=== PATIENT | female | born 1935 | race Caucasian/White ===

== ENCOUNTER → 2018-03-07 14:16 | Outpatient (CLI) | payer MEDICARE, OTHER, SELFPAY ==
[2018-03-07 16:33] LABS: Absolute Lymphocyte Count 2.27 X10^3/ul (0.83-4.51); Absolute Neutrophil Count 3.6 X10^3/uL (2.0-7.7); Basophil# 0.03 X10^3/uL; Basophil% 0.4 % (0-1); Eosinophil# 0.22 X10^3/uL; Eosinophils% 3.1 % (0-5); Hematocrit 38.4 % (37-47); Hemoglobin 13.4 g/dl (12.0-15.0); Lymphocyte # 2.27 X10^3/ul (4.0); Lymphocyte % 32.4 % (19-41); Mean Corp Hgb Conc 34.9 g/gl (32-36); Mean Corpuscular Hgb 31.2 pg (27.0-32.0); Mean Corpuscular Volume 89.3 fL (81-99); Mean Platelet Vol. 11.4 fl (6.2-12.0); Monocyte# 0.84 X10^3/uL; Neutrophil # 3.64 X10^3/uL (2.7-7.7); Platelet Count 196 K/mm3 (150-450); RBC Distribution Width CV 12.9 % (11.6-14.6); RBC Distribution Width SD 41.3 fl (35.1-43.9)
[2018-03-07 16:57] LABS: POSITIVE COUNT NO; POSITIVE DIFFERENTIAL NO; POSITIVE MORPHOLOGY NO
[2018-03-07 17:10] LABS: ALB/GLOB Ratio 1.1 RATIO (0.9-2.4); AST(SGOT) 13 U/L (15-37); Alanine Aminotransfer ALT/SGPT 21 U/L (13-56); Albumin, Serum 3.9 g/dL (3.2-5.0); Alkaline Phosphatase 59 U/L (45-117); Anion Gap 7 (5-15); BUN 12 mg/dL (7-18); BUN/Creat Ratio 11.2 RATIO (10-20); Calcium,Total 9.7 mg/dL (8.5-10.1); Chloride 106 mmol/L (98-107); Creatinine, Serum 1.07 mg/dL (0.55-1.02); EST Glomerular Filtration Rate 52 mL/min (>60); Est Glom Filt Rate - Afr Amer 63 mL/min (>60); Globulin 3.4 g/dL (2.2-4.2); Glucose 129 mg/dL (74-106); Potassium 4.2 mmol/L (3.5-5.1); Protein, Total 7.3 g/dL (6.4-8.2); Sodium Level 141 mmol/L (136-145); Thyroid Stim Hormone (TSH) 2.14 uIU/mL (0.358-3.74)
[2018-03-08 08:22] LABS: Vitamin D,25 Hydroxy 35.2 ng/mL (29.95-100.01)
== END ==
PROVIDERS: Family Provider Family Medicine Geriatric Medicine; PCP Family Medicine Geriatric Medicine; Visit Provider Family Medicine Geriatric Medicine
DX: E11.9 Type 2 diabetes mellitus without complications (principal); E55.9 Vitamin D deficiency, unspecified; I10 Essential (primary) hypertension
CPT/HCPCS: 36415; 80053; 82306; 84443; 85025

== ENCOUNTER → 2018-09-07 08:30 | Outpatient (CLI) | payer MEDICARE, OTHER, SELFPAY ==
--- NOTE | 2018-09-07 08:39 | MRI_ITS ---
STUDY: MRI CERVICAL SPINE WITHOUT CONTRAST REASON FOR EXAM: Female, 82 years old. Neck pain TECHNIQUE: Standardized fat and water weighted pulse sequences were obtained in the sagittal and axial planes. COMPARISON: 11/26/2015 FINDINGS: Normal foramen magnum and brainstem-cervical cord junction. Normal craniovertebral junction. Normal anterior atlantoaxial articulation. Normal odontoid process. There is reversal of the normal cervical lordosis. Normal vertebral bodies and posterior osseous elements. C2-3: Central disc protrusion with mild central canal stenosis. C3-4: Disc osteophyte complex and left facet hypertrophy with mild central canal and left foraminal stenoses. C4-5: Disc osteophyte complex and bilateral facet hypertrophy with moderate central canal and severe right foraminal stenoses. C5-6: The disc space is fused. C6-7: Disc osteophyte complex with mild central canal and moderate bilateral foraminal stenoses. C7-T1: Normal endplates. Normal disc height, signal and morphology. Normal central canal and intervertebral neural foramina. Normal cervical cord. Normal visualized soft tissue structures. MRI/Spine Cervical (Routine) IMPRESSION: Interval progression of multilevel degenerative disc disease. Moderate central canal and severe right foraminal stenoses at the C4-5 level. Moderate bilateral foraminal stenoses at the C6-7 level. Electronically Signed: Nishant Snider MD at 10:48 EDT Tel , Service support ,
== END ==
PROVIDERS: Family Provider Family Medicine Geriatric Medicine; PCP Family Medicine Geriatric Medicine; Referring Provider Family Medicine Geriatric Medicine; Visit Provider Family Medicine Geriatric Medicine
DX: M48.02 Spinal stenosis, cervical region (principal)
CPT/HCPCS: 72141

== ENCOUNTER → 2019-03-10 | Outpatient (CLI) | payer MEDICARE, OTHER, SELFPAY ==
[2019-03-10 16:09] LABS: Absolute Lymphocyte Count 2.27 X10^3/ul (0.83-4.51); Absolute Neutrophil Count 4.4 X10^3/uL (2.0-7.7); Basophil# 0.03 X10^3/uL; Basophil% 0.4 % (0-1); Eosinophil# 0.16 X10^3/uL; Eosinophils% 2.1 % (0-5); Hematocrit 37.2 % (37-47); Hemoglobin 12.3 g/dl (12.0-15.0); Lymphocyte # 2.27 X10^3/ul (4.0); Lymphocyte % 29.9 % (19-41); Mean Corp Hgb Conc 33.1 g/gl (32-36); Mean Corpuscular Volume 93.7 fL (81-99); Mean Platelet Vol. 11.3 fl (6.2-12.0); Monocyte% 9.2 % (0-10); Neutrophil # 4.41 X10^3/uL (2.7-7.7); Neutrophil % 58.3 % (47-70); Platelet Count 213 K/mm3 (150-450); RBC Distribution Width CV 13.8 % (11.6-14.6); RBC Distribution Width SD 47.6 fl (35.1-43.9); Red Blood Count 3.97 M/mm3 (4.2-5.4); White Blood Count 7.6 K/mm3 (4.4-11.0)
[2019-03-10 16:27] LABS: Vitamin D,25 Hydroxy 14.9 ng/mL (29.95-100.01)
[2019-03-10 16:35] LABS: POSITIVE COUNT NO; POSITIVE DIFFERENTIAL NO; POSITIVE MORPHOLOGY NO
[2019-03-10 16:36] LABS: AST(SGOT) 12 U/L (15-37); Alanine Aminotransfer ALT/SGPT 18 U/L (13-56); Albumin, Serum 3.6 g/dL (3.2-5.0); Alkaline Phosphatase 63 U/L (45-117); Anion Gap 10 (5-15); BUN 14 mg/dL (7-18); BUN/Creat Ratio 14.3 RATIO (10-20); Calcium,Total 9.4 mg/dL (8.5-10.1); Chloride 105 mmol/L (98-107); Creatinine, Serum 0.98 mg/dL (0.55-1.02); EST Glomerular Filtration Rate 58 mL/min (>60); Est Glom Filt Rate - Afr Amer 70 mL/min (>60); Globulin 3.5 g/dL (2.2-4.2); Glucose 177 mg/dL (74-106); Potassium 4.1 mmol/L (3.5-5.1); Protein, Total 7.1 g/dL (6.4-8.2); Sodium Level 139 mmol/L (136-145); Thyroid Stim Hormone (TSH) 1.84 uIU/mL (0.358-3.74)
== END | disposition home or self-care (01) ==
LOC: POLAB3 14:24
PROVIDERS: Family Provider Family Medicine Geriatric Medicine; PCP Family Medicine Geriatric Medicine; Visit Provider Family Medicine Geriatric Medicine
DX: E11.9 Type 2 diabetes mellitus without complications (principal); E55.9 Vitamin D deficiency, unspecified; I10 Essential (primary) hypertension
CPT/HCPCS: 36415; 80053; 82306; 84443; 85025

== ENCOUNTER → 2019-05-19 | Outpatient (CLI) | payer MEDICARE, OTHER, SELFPAY ==
[2019-05-19 12:23] LABS: Absolute Lymphocyte Count 0.95 X10^3/ul (0.83-4.51); Absolute Neutrophil Count 2.8 X10^3/uL (2.0-7.7); Basophil# 0.02 X10^3/uL; Basophil% 0.4 % (0-1); Eosinophil# 0.17 X10^3/uL; Eosinophils% 3.6 % (0-5); Hemoglobin 12.7 g/dl (12.0-15.0); Lymphocyte # 0.95 X10^3/ul (4.0); Lymphocyte % 20.1 % (19-41); Mean Corp Hgb Conc 33.4 g/gl (32-36); Mean Corpuscular Hgb 30.5 pg (27.0-32.0); Mean Corpuscular Volume 91.1 fL (81-99); Mean Platelet Vol. 11.3 fl (6.2-12.0); Monocyte% 16.9 % (0-10); Neutrophil # 2.78 X10^3/uL (2.7-7.7); Platelet Count 188 K/mm3 (150-450); RBC Distribution Width CV 13.5 % (11.6-14.6); RBC Distribution Width SD 44.1 fl (35.1-43.9); Red Blood Count 4.17 M/mm3 (4.2-5.4); White Blood Count 4.7 K/mm3 (4.4-11.0)
[2019-05-19 12:33] LABS: POSITIVE COUNT NO; POSITIVE DIFFERENTIAL NO; POSITIVE MORPHOLOGY NO
--- NOTE | 2019-05-19 12:40 | RAD_ITS ---
STUDY: X-RAY CHEST REASON FOR EXAM: Female, 83 years old. Shortness of breath. TECHNIQUE: PA and lateral views of the chest. COMPARISON: None. FINDINGS: Lungs are mildly hyperexpanded. There is chronic interstitial coarsening without acute infiltrate or mass. There is no demonstrated pleural abnormality. Normal size heart. Normal mediastinum and linda. Normal visualized pulmonary arteries. There is atherosclerotic calcification of the aortic arch with tortuosity. Normal visualized thoracic spine. Normal visualized ribs, clavicles, and shoulders. There is no demonstrated abnormality of the visualized soft tissue structures of the upper abdomen. RAD/Chest PA and Lateral IMPRESSION: No acute cardiopulmonary disease. Electronically Signed: Jayant Meade DO at 17:02 EDT Tel [phone], Service support ,
[2019-05-19 12:50] LABS: D-Dimer Quantitative (DVT/PE) 1.17 FEU/ug/m (0.27-0.49)
[2019-05-19 12:51] LABS: ALB/GLOB Ratio 0.8 RATIO (0.9-2.4); AST(SGOT) 18 U/L (15-37); Alanine Aminotransfer ALT/SGPT 20 U/L (13-56); Albumin, Serum 3.4 g/dL (3.2-5.0); Alkaline Phosphatase 87 U/L (45-117); Anion Gap 10 (5-15); BUN 10 mg/dL (7-18); BUN/Creat Ratio 8.8 RATIO (10-20); CPK Total, Creatine Kinase 59 U/L (26-192); Calcium,Total 9.5 mg/dL (8.5-10.1); Chloride 103 mmol/L (98-107); Creatinine, Serum 1.14 mg/dL (0.55-1.02); EST Glomerular Filtration Rate 49 mL/min (>60); Est Glom Filt Rate - Afr Amer 59 mL/min (>60); Globulin 4.2 g/dL (2.2-4.2); Glucose 183 mg/dL (74-106); Potassium 3.8 mmol/L (3.5-5.1); Protein, Total 7.6 g/dL (6.4-8.2); Sodium Level 137 mmol/L (136-145)
[2019-05-19 13:02] LABS: BNP,B-Type NATRIURETIC PEPTIDE 8.6 pg/mL (0-100)
[2019-05-21 17:28] LABS: Myoglobin, Serum 42 ng/mL (25-58)
== END | disposition home or self-care (01) ==
LOC: POLAB3 11:00 → RAD 12:36
PROVIDERS: Family Provider Family Medicine Geriatric Medicine; PCP Family Medicine Geriatric Medicine; Referring Provider Family Medicine Geriatric Medicine; Visit Provider Family Medicine Geriatric Medicine
DX: N39.0 Urinary tract infection, site not specified (principal); R06.02 Shortness of breath; R06.89 Other abnormalities of breathing; R53.83 Other fatigue
CPT/HCPCS: 36415; 71046; 80053; 82550; 83874; 83880; 84443; 84484; 85025; 85379; 87086; 87088

== ENCOUNTER → 2019-05-20 | Outpatient (CLI) | payer MEDICARE, OTHER, SELFPAY ==
--- NOTE | 2019-05-20 12:23 | CT_ITS ---
STUDY: CTA CHEST REASON FOR EXAM: Female, 83 years old. Shortness of breath. RADIATION DOSAGE (If Supplied By Facility): CTDIvol = ( 5.21 ) mGy, DLP = ( 181.46 ) mGycm TECHNIQUE: The examination was performed with the intravenous administration of 75 IV Isovue 370. Post-processing of the angiographic images was performed, with multiplanar reformation and 3D reconstruction. Individualized dose optimization techniques were used for this CT. COMPARISON: Comparison is made with prior examination dated November 14, 2016. FINDINGS: Normal enhancement of the main pulmonary artery and right and left pulmonary arteries. Normal enhancement of the bilateral peripheral pulmonary arteries. There is no demonstrated pulmonary embolism. There is atherosclerotic calcification of the aortic arch with tortuosity. There is no demonstrated aortic dissection. There are calcifications of the coronary arteries. Normal mediastinum. Normal hilar regions. Normal visualized trachea and bronchi. The lungs are well expanded. Stable focal area of scarring in the posterior right apex as well as in the left apex. Focal bronchiectasis is seen in the right apex. Stable scarring in the posterior medial aspect of the left lower lobe. Normal pleura. Normal chest wall structures. There are degenerative changes of thoracic spine. Normal visualized upper abdomen. CT/CTA Chest W/WO Contrast IMPRESSION: Stable examination with scarring in the apices and left lower lobe. No acute abnormality is seen. Electronically Signed: Alvin Frost, at 14:25 EDT , Service support ,
[2019-05-20 17:50] LABS: CPK Total, Creatine Kinase 83 U/L (26-192)
[2019-05-22 08:04] LABS: Myoglobin, Serum 42 ng/mL (25-58)
== END | disposition home or self-care (01) ==
LOC: CT 11:56
PROVIDERS: Family Provider Family Medicine Geriatric Medicine; PCP Family Medicine Geriatric Medicine; Referring Provider Family Medicine Geriatric Medicine; Visit Provider Family Medicine Geriatric Medicine
DX: R06.02 Shortness of breath (principal); R07.9 Chest pain, unspecified
CPT/HCPCS: 36415; 71275; 82550; 83874; 84484; Q9967

== ENCOUNTER → 2019-05-30 | Outpatient (CLI) | payer MEDICARE, OTHER, SELFPAY ==
--- NOTE | 2019-05-30 15:27 | STRESSREP ---
Stress Test Report Exercise myocardial perfusion stress test. 83-year-old lady with a history of chest pain. Stress protocol: Resting EKG demonstrates normal sinus rhythm with a rate of 78 bpm normal intervals are noted resting blood pressures 130/70 mmHg. Patient exercised according to regular Lenny protocol for total duration of 4 minutes and 30 seconds the maximum heart rate attained was 148 bpm which was 106% of maximum predicted heart rate and maximum workload was 6.4 metabolic equivalents. At rest there were no ST or T wave changes noted suggest ischemia peak exercise upsloping ST changes only were noted with no meet the criteria for ischemia. No clinical angina was noted the test was terminated due to leg fatigue. The resting blood pressure 130/70 with a peak blood pressure 170/80 mmHg. Myocardial perfusion protocol. 10.7 mCi of technetium 99m sestamibi was injected at rest. The patient exercised according to Lenny protocol for 4 minutes and 30 seconds at peak exercise 31.1 mCi of technetium 99m sestamibi was injected stress images were obtained stress and rest images are reconstructed in comparing the short axis vertical and horizontal long axis. Gated images were also obtained Perfusion SPECT analysis: Review of the images demonstrate normal uptake of tracer noted in all areas of the myocardium the resting images similar demonstrate normal uptake of tracer noted in all areas of the myocardium. No areas of reversibility are noted suggest ischemia. No previous infarct is noted. Gated SPECT analysis: The gated ejection fraction is noted to be in excess of 80%. Conclusion: Normal exercise myocardial perfusion stress test at a moderate workload. Excellent functional capacity. No arrhythmias noted. Preserved ejection fraction.
== END | disposition home or self-care (01) ==
LOC: CVS 06:35
PROVIDERS: Family Provider Family Medicine Geriatric Medicine; PCP Family Medicine Geriatric Medicine; Referring Provider Family Medicine Geriatric Medicine; Visit Provider Family Medicine Geriatric Medicine
DX: R07.9 Chest pain, unspecified (principal)
CPT/HCPCS: 78452; 93017; A9500; A4216

== ENCOUNTER → 2019-09-09 | Outpatient (CLI) | payer MEDICARE, OTHER, SELFPAY ==
[2019-09-09 17:46] LABS: Absolute Neutrophil Count 2.3 X10^3/uL (2.0-7.7); Basophil# 0.03 X10^3/uL; Basophil% 0.6 % (0-1); Eosinophil# 0.16 X10^3/uL; Hematocrit 37.5 % (37-47); Hemoglobin 12.4 g/dL (12.0-15.0); Mean Corp Hgb Conc 33.1 g/dL (32-36); Mean Corpuscular Hgb 30.8 pg (27.0-32.0); Mean Corpuscular Volume 93.1 fL (81-99); Mean Platelet Vol. 11.7 fl (6.2-12.0); Monocyte# 0.63 X10^3/uL; Monocyte% 11.8 % (0-10); NRBC Flagged by Analyzer 0 % (0-5); Neutrophil # 2.33 X10^3/uL (2.7-7.7); Neutrophil % 43.4 % (47-70); Platelet Count 194 K/mm3 (150-450); RBC Distribution Width CV 13.2 % (11.6-14.6); RBC Distribution Width SD 45.4 fl (35.1-43.9); Red Blood Count 4.03 M/mm3 (4.2-5.4); White Blood Count 5.4 K/mm3 (4.4-11.0)
[2019-09-09 18:07] LABS: Vitamin D,25 Hydroxy 29.3 ng/mL (29.95-100.01)
[2019-09-09 18:24] LABS: ALB/GLOB Ratio 1.1 RATIO (0.9-2.4); AST(SGOT) 12 U/L (15-37); Alanine Aminotransfer ALT/SGPT 15 U/L (13-56); Albumin, Serum 3.8 g/dL (3.2-5.0); Alkaline Phosphatase 68 U/L (45-117); Anion Gap 7 (5-15); BUN 12 mg/dL (7-18); BUN/Creat Ratio 12.6 RATIO (10-20); Calcium,Total 9.7 mg/dL (8.5-10.1); Chloride 106 mmol/L (98-107); Creatinine, Serum 0.96 mg/dL (0.55-1.02); EST Glomerular Filtration Rate 60 mL/min (>60); Est Glom Filt Rate - Afr Amer 72 mL/min (>60); Globulin 3.5 g/dL (2.2-4.2); Glucose 138 mg/dL (74-106); Potassium 4.2 mmol/L (3.5-5.1); Protein, Total 7.3 g/dL (6.4-8.2); Sodium Level 139 mmol/L (136-145); Thyroid Stim Hormone (TSH) 2.56 uIU/mL (0.358-3.74)
== END | disposition home or self-care (01) ==
LOC: POLAB3 14:33
PROVIDERS: Family Provider Family Medicine Geriatric Medicine; PCP Family Medicine Geriatric Medicine; Visit Provider Family Medicine Geriatric Medicine
DX: E11.9 Type 2 diabetes mellitus without complications (principal); E55.9 Vitamin D deficiency, unspecified; I10 Essential (primary) hypertension
CPT/HCPCS: 36415; 80053; 82306; 84443; 85025

== ENCOUNTER → 2020-03-11 14:31 | Outpatient (CLI) | payer MEDICARE, OTHER, SELFPAY ==
[2020-03-11 15:37] LABS: Absolute Lymphocyte Count 2.01 X10^3/uL (0.83-4.51); Basophil# 0.03 X10^3/uL; Basophil% 0.5 % (0-1); Eosinophil# 0.16 X10^3/uL; Eosinophils% 2.7 % (0-5); Hematocrit 38.3 % (37-47); Hemoglobin 12.9 g/dL (12.0-15.0); Lymphocyte # 2.01 X10^3/ul (4.0); Lymphocyte % 34.4 % (19-41); Mean Corp Hgb Conc 33.7 g/dL (32-36); Mean Corpuscular Hgb 30.7 pg (27.0-32.0); Mean Corpuscular Volume 91.2 fL (81-99); Mean Platelet Vol. 11.2 fl (6.2-12.0); Monocyte# 0.64 X10^3/uL; Monocyte% 10.9 % (0-10); NRBC Flagged by Analyzer 0 % (0-5); Neutrophil # 2.99 X10^3/uL (2.7-7.7); Neutrophil % 51.2 % (47-70); Platelet Count 188 K/mm3 (150-450); RBC Distribution Width CV 13.1 % (11.6-14.6); RBC Distribution Width SD 44.4 fl (35.1-43.9); White Blood Count 5.9 K/mm3 (4.4-11.0)
[2020-03-11 16:10] LABS: Vitamin D,25 Hydroxy 27.9 ng/mL
[2020-03-11 16:40] LABS: ALB/GLOB Ratio 1.1 RATIO (0.9-2.4); AST(SGOT) 13 U/L (15-37); Alanine Aminotransfer ALT/SGPT 15 U/L (13-56); Albumin, Serum 3.8 g/dL (3.2-5.0); Alkaline Phosphatase 60 U/L (45-117); Anion Gap 6 (5-15); BUN 13 mg/dL (7-18); BUN/Creat Ratio 13.3 RATIO (10-20); Calcium,Total 9.4 mg/dL (8.5-10.1); Chloride 104 mmol/L (98-107); Creatinine, Serum 0.98 mg/dL (0.55-1.02); EST Glomerular Filtration Rate 58 mL/min (>60); Est Glom Filt Rate - Afr Amer 70 mL/min (>60); Globulin 3.6 g/dL (2.2-4.2); Glucose 109 mg/dL (74-106); Potassium 3.6 mmol/L (3.5-5.1); Protein, Total 7.4 g/dL (6.4-8.2); Sodium Level 139 mmol/L (136-145); Thyroid Stim Hormone (TSH) 1.41 uIU/mL (0.358-3.74)
== END ==
PROVIDERS: PCP Family Medicine Geriatric Medicine; Referring Provider Family Medicine Geriatric Medicine; Visit Provider Family Medicine Geriatric Medicine
DX: E11.9 Type 2 diabetes mellitus without complications (principal); E55.9 Vitamin D deficiency, unspecified; I10 Essential (primary) hypertension
CPT/HCPCS: 36415; 80053; 82306; 84443; 85025

== ENCOUNTER → 2020-06-09 14:38 | Outpatient (CLI) | payer MEDICARE, OTHER, SELFPAY ==
[2020-06-09 16:38] LABS: Absolute Lymphocyte Count 1.77 X10^3/uL (0.83-4.51); Absolute Neutrophil Count 3.1 X10^3/uL (2.0-7.7); Basophil# 0.03 X10^3/uL; Basophil% 0.5 % (0-1); Eosinophil# 0.14 X10^3/uL; Eosinophils% 2.5 % (0-5); Hematocrit 37.5 % (37-47); Hemoglobin 12.6 g/dL (12.0-15.0); Lymphocyte # 1.77 X10^3/ul (4.0); Lymphocyte % 31.4 % (19-41); Mean Corp Hgb Conc 33.6 g/dL (32-36); Mean Corpuscular Hgb 31.6 pg (27.0-32.0); Mean Platelet Vol. 12.2 fl (6.2-12.0); Monocyte# 0.64 X10^3/uL; Monocyte% 11.3 % (0-10); NRBC Flagged by Analyzer 0 % (0-5); Neutrophil # 3.05 X10^3/uL (2.7-7.7); Neutrophil % 54.1 % (47-70); POSITIVE COUNT YES; Platelet Count 149 K/mm3 (150-450); RBC Distribution Width CV 13.2 % (11.6-14.6); RBC Distribution Width SD 44.7 fl (35.1-43.9); Red Blood Count 3.99 M/mm3 (4.2-5.4); White Blood Count 5.6 K/mm3 (4.4-11.0)
[2020-06-09 17:03] LABS: Vitamin D,25 Hydroxy 28.8 ng/mL
[2020-06-09 17:07] LABS: Differential Indicated SCAN CRITERIA MET
[2020-06-09 17:08] LABS: Platelet Estimate ADEQUATE (ADEQ); Red Cell Morphology NORM C+C NORMAL (NORM C&C)
[2020-06-09 17:09] LABS: ALB/GLOB Ratio 1.2 RATIO (0.9-2.4); AST(SGOT) 16 U/L (15-37); Alanine Aminotransfer ALT/SGPT 15 U/L (13-56); Albumin, Serum 3.8 g/dL (3.2-5.0); Alkaline Phosphatase 59 U/L (45-117); Anion Gap 5 (5-15); BUN 12 mg/dL (7-18); BUN/Creat Ratio 12.5 RATIO (10-20); Calcium,Total 9.2 mg/dL (8.5-10.1); Chloride 109 mmol/L (98-107); Creatinine, Serum 0.96 mg/dL (0.55-1.02); EST Glomerular Filtration Rate 59 mL/min (>60); Est Glom Filt Rate - Afr Amer 71 mL/min (>60); Globulin 3.1 g/dL (2.2-4.2); Glucose 114 mg/dL (74-106); Potassium 4.5 mmol/L (3.5-5.1); Protein, Total 6.9 g/dL (6.4-8.2); Sodium Level 140 mmol/L (136-145); Thyroid Stim Hormone (TSH) 1.57 uIU/mL (0.358-3.74)
== END ==
PROVIDERS: PCP Family Medicine Geriatric Medicine; Visit Provider Family Medicine Geriatric Medicine
DX: E11.9 Type 2 diabetes mellitus without complications (principal); E55.9 Vitamin D deficiency, unspecified; I10 Essential (primary) hypertension
CPT/HCPCS: 36415; 80053; 82306; 84443; 85025

== ENCOUNTER 2020-07-17 13:02 | Emergency (ER) | payer MEDICARE, OTHER, SELFPAY ==
[2020-07-17 13:03] VITALS: BP 145/91; PULSE 83; RESP 18; TEMP 36.4; O2SAT 98; BMI 21.1
--- NOTE | 2020-07-17 13:10 | EKG12_ITS ---
Test Reason : NAUSEA Blood Pressure : / mmHG Vent. Rate : 076 BPM Atrial Rate : 076 BPM P-R Int : 156 ms QRS Dur : 080 ms QT Int : 394 ms P-R-T Axes : 036 -27 055 degrees QTc Int : 443 ms Normal sinus rhythm [place] Confirmed by MANISH LAZARO, KVNG ([id number]), photograph editor GELACIO ZHU ([id number]) on 07/21/2020 9:55:33 AM Referred By: THIERNO Confirmed By:KVNG HAMMOND MD
--- NOTE | 2020-07-17 13:21 | RAD_ITS ---
STUDY: X-RAY CHEST REASON FOR EXAM: Female, 84 years old. MALAISE TECHNIQUE: Frontal view of the chest COMPARISON: May 20 2019 FINDINGS: There is minor apical scarring. The lungs are clear and expanded. There is no demonstrated pleural abnormality. Normal size heart. Normal mediastinum and linda. Normal visualized pulmonary arteries. Normal visualized aortic arch and descending thoracic aorta. Normal visualized thoracic spine. Normal visualized ribs, clavicles, and shoulders. There is no demonstrated abnormality of the visualized soft tissue structures of the upper abdomen. RAD/Chest 1 View (Portable) IMPRESSION: Normal x-ray examination of the chest. Electronically Signed: Jayce Velazco, at 14:51 EDT Tel , Service support ,
--- NOTE | 2020-07-17 13:25 | ED.DCSUM_ITS ---
History of Present Illness Chief Complaint: Nausea/Vomiting/Diarrhea Informant: Patient, Significant Other Onset: Days Context: Gradual Onset Timing: Continuous Narrative: Patient is an 84-year-old female with history of diabetes mellitus and hyperlipidemia presenting with generalized malaise and nausea. Patient states she just has been feeling well for the past 3 to 5 days. Family is concerned because she normally does complain of anything so they brought her in to be evaluated. Patient had nausea with some intermittent episodes of vomiting. She has not vomited today. She had decreased appetite. No reported fever or chills. No abdominal pain. Her bowel movements have been normal with no particular constipation or diarrhea. She denies any black or bloody stools. No associated chest pain, diaphoresis or shortness of breath. No swelling of her legs. No urinary symptoms. No other complaints at this time. Prior similar symptoms: No Past Medical History - Allergies and Home Meds Allergies/Adverse Reactions: Allergies pneumococcal vaccine [Pneumococcal Vaccine] Allergy (Verified 07/17/20 13:06) Hives Primary Care Physician: John Noonan Chi, MD [Primary Care Provider] - Past Medical History: - - Hyperlipidemia, diabetes mellitus Surgical History: hysterectomy Lives: Spouse/ Significant Other Smoking Status: Unknown if ever smoked Review of Systems General: Reports: Malaise, - - Decreased appetite. Denies: Chills, Fever, Sweats Eyes: Denies: Visual changes - bilaterally, Diplopia ENT: Denies: Rhinorrhea, Sore throat Cardiovascular: Denies: Chest pain, Palpitations Respiratory: Denies: Dyspnea, Cough, Dyspnea on exertion Gastrointestinal: Reports: Nausea, Vomiting. Denies: Abdominal pain, Diarrhea, Melena, Hematochezia Genitourinary: Denies: Dysuria, Hematuria, Frequency Musculoskeletal: Denies: Back pain, Extremity Pain Skin: Denies: Rash, Wounds Neurological: Denies: Headache, Weakness, Numbness Physical Exam Vital Signs/Narrative: Vital Signs Temp Pulse Resp BP Pulse Ox 07/17/20 13:03 97.5 F L 83 18 145/91 H 98 Inital Vital Signs reviewed: Yes General: Well nourished, Well developed, No Acute Distress Head: Normocephalic, Atraumatic Eyes: Perrl, EOMI ENT: Moist mucous membranes, No rhinorrhea. Negative for: Dry mucous membranes Neck: Supple, Nontender, No JVD Cardiovascular: Regular rate, Regular rhythm, No murmurs, - - 2+ radial and DP pulses Respiratory: No distress, CTA bilaterally, Chest nontender Abdomen: Soft, Nontender, Nondistended, Normal bowel sounds. Negative for: Guarding, Rebound tenderness, Lee's sign Back: Nontender, Normal Inspection Extremities: Nontender, No edema Skin: Normal color, No rash Neurological: Alert, Oriented x3, Cranial nerves II-XII grossly intact, Normal Strength, Normal Sensation Psychological: Normal affect, Normal Mood Diagnostic/Tx/Re-eval Clinical Impression(s) from Imaging Studies Chest X-Ray 07/17/20 13:21 IMPRESSION: Normal x-ray examination of the chest. Electronically Signed: Jayce Willownader, at 14:51 EDT Tel , Service support , Laboratory Data 07/17/20 07/17/20 07/17/20 14:04 14:04 14:04 WBC 5.2 RBC 4.16 L Hgb 12.8 Hct 38.1 MCV 91.6 MCH 30.8 MCHC 33.6 RDW Std Deviation 44.1 H RDW Coeff of Cheryl 13.1 Plt Count 175 MPV 10.9 Immature Gran % (Auto) 0.400 Neut % (Auto) 52.7 Lymph % (Auto) 31.5 [place] % (Auto) 11.5 H Eos % (Auto) 3.5 Baso % (Auto) 0.4 Absolute Neuts (auto) 2.7 Absolute Lymphs (auto) 1.64 Nucleated RBC % 0 Sodium 141 Potassium 3.5 Chloride 107 Carbon Dioxide 26.0 Anion Gap 8 BUN 10 Creatinine 0.96 Estim Creat Clear Calc 35.73 Est GFR (MDRD) Af Amer 72 Est GFR (MDRD) Non-Af 59 L BUN/Creatinine Ratio 10.4 Glucose 118 H Lactic Acid 2.0 Calcium 9.3 Total Bilirubin 0.90 AST 13 L ALT 14 Alkaline Phosphatase 57 Troponin I < 0.015 Total Protein 7.2 Albumin 3.7 Globulin 3.5 Albumin/Globulin Ratio 1.1 Lipase 525 H Urine Color Urine Clarity Urine pH Ur Specific [place] Urine Protein Urine Glucose (UA) Urine Ketones Urine Occult Blood Urine Nitrite Urine Bilirubin Urine Urobilinogen Ur Leukocyte Esterase Urine RBC Urine WBC Ur Squamous Epith Cells Urine Bacteria Urine Mucus 07/17/20 14:42 WBC RBC Hgb Hct MCV MCH MCHC RDW Std Deviation RDW Coeff of Cheryl Plt Count MPV Immature Gran % (Auto) Neut % (Auto) Lymph % (Auto) [place] % (Auto) Eos % (Auto) Baso % (Auto) Absolute Neuts (auto) Absolute Lymphs (auto) Nucleated RBC % Sodium Potassium Chloride Carbon Dioxide Anion Gap BUN Creatinine Estim Creat Clear Calc Est GFR (MDRD) Af Amer Est GFR (MDRD) Non-Af BUN/Creatinine Ratio Glucose Lactic Acid Calcium Total Bilirubin AST ALT Alkaline Phosphatase Troponin I Total Protein Albumin Globulin Albumin/Globulin Ratio Lipase Urine Color Yellow Urine Clarity Sl. Cloudy Urine pH 7.0 Ur Specific [place] 1.010 Urine Protein 30 H Urine Glucose (UA) Normal Urine Ketones Negative Urine Occult Blood 10 H Urine Nitrite Negative Urine Bilirubin Negative Urine Urobilinogen Normal Ur Leukocyte Esterase 100 H Urine RBC 0 SEEN Urine WBC 0-5 SEEN Ur Squamous Epith Cells 0-5 SEEN Urine Bacteria RARE Urine Mucus 0 SEEN - Rhythm Strip Rhythm Strip: Sinus Rhythm Rate: 76 Ectopy: None - EKG Initial EKG Interpretation: Sinus Rhythm, - - Normal sinus rhythm at a rate of 76 Normal axis Normal intervals Normal ST segments Compared to prior EKG on 04/07/2014 patient has mild Deport change but no other acute changes - Medical Decision Making Patient is evaluated for diffuse abdominal discomfort, and nausea. She has active bowel sounds. CBC, CMP, troponin are all unremarkable. Patient is have a mild transient mildly elevated lipase of 525. CT of the abdomen pelvis obtained because of the elevated lipase. It does not show any acute process. Patient is found have gallstones. Her presentation is not consistent with gallstone pancreatitis especially with her normal liver enzymes, bilirubin and alkaline phosphatase. Patient feels better with IV fluids and Zofran. She be discharged home with Zofran. She is counseled on a liquid diet for the next 24 hours and then to slowly advance her diet. She is well-appearing and tolerating p.o. with no signs of dehydration I think she can trial outpatient therapy. Patient and are counseled that there is a chance she could get worse and might need to return the emergency room. They verbalized agreement understanding with this. They are instructed to follow-up with her primary care doctor later this week for recheck. Patient is counseled on signs and symptoms requiring return to the emergency room. Patient verbalizes agreement and understand this plan. Patient discharged home in stable and improved condition. ED Disposition - Plan for ED Patient: Disposition: Home or Assisted Living Diagnosis: Pancreatitis, Nausea Instructions: ED Pancreatitis, ED DIET Full Liquid Prescriptions: Ondansetron [Zofran Odt] 4 mg PO Q8H PRN PRN #10 tab PRN Reason: Nausea Transmission Status: Pending to [facility] Referrals: John Noonan Chi, MD [Primary Care Provider] - 5-7 Days
[2020-07-17] MEDS: Ondansetron 4 MG/2 ML Vial IV (14:07)
[2020-07-17] MEDS: 0.9% Normal Saline 1,000 ML 999 ML IV (14:07)
[2020-07-17 14:12] LABS: Absolute Lymphocyte Count 1.64 X10^3/uL (0.83-4.51); Absolute Neutrophil Count 2.7 X10^3/uL (2.0-7.7); Basophil# 0.02 X10^3/uL; Basophil% 0.4 % (0-1); Eosinophil# 0.18 X10^3/uL; Eosinophils% 3.5 % (0-5); Hematocrit 38.1 % (37-47); Hemoglobin 12.8 g/dL (12.0-15.0); Lymphocyte # 1.64 X10^3/ul (4.0); Lymphocyte % 31.5 % (19-41); Mean Corp Hgb Conc 33.6 g/dL (32-36); Mean Corpuscular Hgb 30.8 pg (27.0-32.0); Mean Corpuscular Volume 91.6 fL (81-99); Mean Platelet Vol. 10.9 fl (6.2-12.0); Monocyte% 11.5 % (0-10); NRBC Flagged by Analyzer 0 % (0-5); Neutrophil # 2.74 X10^3/uL (2.7-7.7); Neutrophil % 52.7 % (47-70); Platelet Count 175 K/mm3 (150-450); RBC Distribution Width CV 13.1 % (11.6-14.6); RBC Distribution Width SD 44.1 fl (35.1-43.9); Red Blood Count 4.16 M/mm3 (4.2-5.4); White Blood Count 5.2 K/mm3 (4.4-11.0)
[2020-07-17 14:30] LABS: ALB/GLOB Ratio 1.1 RATIO (0.9-2.4); AST(SGOT) 13 U/L (15-37); Alanine Aminotransfer ALT/SGPT 14 U/L (13-56); Albumin, Serum 3.7 g/dL (3.2-5.0); Alkaline Phosphatase 57 U/L (45-117); Anion Gap 8 (5-15); BUN 10 mg/dL (7-18); BUN/Creat Ratio 10.4 RATIO (10-20); Calcium,Total 9.3 mg/dL (8.5-10.1); Chloride 107 mmol/L (98-107); Creatinine, Serum 0.96 mg/dL (0.55-1.02); EST Glomerular Filtration Rate 59 mL/min (>60); Est Glom Filt Rate - Afr Amer 72 mL/min (>60); Estimated Creatinine Clearance 35.73 ml/min; Globulin 3.5 g/dL (2.2-4.2); Glucose 118 mg/dL (74-106); Lipase 525 U/L (73-393); Potassium 3.5 mmol/L (3.5-5.1); Protein, Total 7.2 g/dL (6.4-8.2); Sodium Level 141 mmol/L (136-145)
[2020-07-17 14:45] LABS: Mucous, Urine 0 SEEN /hpf (<or=2+); Red Blood Cells-Urine 0 SEEN /hpf (0-5)
[2020-07-17 14:46] LABS: Color, Urine Yellow (Yellow); Glucose, Dipstick Normal (Normal); Ketone-Dipstick Negative (Negative); Leukocyte Esterase-Dipstick 100 /ul (Negative); Nitrite-Dipstick Negative (Negative); Occult Blood-Urine 10 /ul (Negative); Protein-Dipstick 30 mg/dl (Negative); Urine Bilirubin Dipstick Negative (Negative); Urine Clarity Sl. Cloudy (Clear); Urine Urobilinogen Normal (Normal)
[2020-07-17 14:52] LABS: Bacteria RARE /hpf (None Seen); Squamous Epithelial Cells - UA 0-5 SEEN /hpf (5-10); White Blood Cells 0-5 SEEN /hpf (0-5)
--- NOTE | 2020-07-17 14:58 | CT_ITS ---
STUDY: CT ABDOMEN AND PELVIS WITH CONTRAST REASON FOR EXAM: Female, 84 years old. Nausea and vomiting RADIATION DOSAGE (If Supplied By Facility): CTDIvol = ( 9.44 ) mGy, DLP = ( 401.34 ) mGycm TECHNIQUE: Transaxial images were obtained from the dome of the diaphragm to the symphysis pubis without oral contrast. ml of 100mL Isovue-300 contrast was administered. Sagittal and coronal images were reconstructed. Individualized dose optimization techniques were used for this CT. COMPARISON: None. FINDINGS: The visualized lung bases are clear. The visualized portions of the heart and pericardium are within normal limits. There are coronary artery calcifications noted. There are subcentimeter calcified gallstones present. The liver is within normal limits. There are no suspicious hepatic lesions. The spleen is normal in size. The pancreas is within normal limits. The adrenal glands are within normal limits. There are no renal or ureteral stones. There is no hydronephrosis. There are no focal renal lesions. Normal visualized stomach. There is no bowel obstruction or inflammation. The appendix is visualized and appears normal. The aorta is normal in caliber. There are atherosclerotic calcifications noted in the aorta. There is no abdominal or pelvic free air, free fluid, fluid collection or lymphadenopathy. There are no destructive osseous lesions. CT/Abdomen/Pelvis W IV Cont ONLY IMPRESSION: No bowel obstruction or inflammation. Normal appendix. Normal kidneys. No hydronephrosis. Gallstones. Atherosclerosis and coronary artery disease. Electronically Signed: Ian Moody, at 16:10 EDT Tel , Service support ,
[2020-07-17 16:17] VITALS: BP 148/72; PULSE 85; RESP 16; RESP 18; TEMP 36.3; O2SAT 96; O2SAT 97
[2020-07-17 16:46] VITALS: BP 146/76; PULSE 77; RESP 16; O2SAT 96
[2020-07-17 18:08] LABS: Reflex Lactate? Y
== END 2020-07-17 16:47 | disposition home or self-care (01) ==
PROVIDERS: Emergency Provider Emergency Medicine; PCP Family Medicine Geriatric Medicine
DX: K85.90 Acute pancreatitis without necrosis or infection, unspecified (principal); R11.2 Nausea with vomiting, unspecified; Z79.899 Other long term (current) drug therapy
CPT/HCPCS: 71045; 74177; 80053; 81001; 83605; 83690; 84484; 85025; 87086; 87088; 93005; 96374; 99283; J7030; Q9967; A4216; J2405

== ENCOUNTER → 2020-07-20 12:15 | Outpatient (CLI) | payer MEDICARE, OTHER, SELFPAY ==
[2020-07-17 13:03] VITALS: BMI 21.1
[2020-07-20 12:44] LABS: Absolute Lymphocyte Count 2.21 X10^3/uL (0.83-4.51); Absolute Neutrophil Count 3.1 X10^3/uL (2.0-7.7); Basophil# 0.04 X10^3/uL; Basophil% 0.6 % (0-1); Eosinophil# 0.15 X10^3/uL; Eosinophils% 2.4 % (0-5); Hematocrit 40.7 % (37-47); Hemoglobin 13.5 g/dL (12.0-15.0); Lymphocyte # 2.21 X10^3/ul (4.0); Lymphocyte % 35.8 % (19-41); Mean Corp Hgb Conc 33.2 g/dL (32-36); Mean Corpuscular Hgb 30.4 pg (27.0-32.0); Mean Corpuscular Volume 91.7 fL (81-99); Mean Platelet Vol. 11.1 fl (6.2-12.0); Monocyte% 11.3 % (0-10); NRBC Flagged by Analyzer 0 % (0-5); Neutrophil # 3.07 X10^3/uL (2.7-7.7); Neutrophil % 49.7 % (47-70); Platelet Count 206 K/mm3 (150-450); RBC Distribution Width CV 13.1 % (11.6-14.6); RBC Distribution Width SD 44.3 fl (35.1-43.9); Red Blood Count 4.44 M/mm3 (4.2-5.4); White Blood Count 6.2 K/mm3 (4.4-11.0)
[2020-07-20 12:54] LABS: ALB/GLOB Ratio 1.1 RATIO (0.9-2.4); AST(SGOT) 16 U/L (15-37); Alanine Aminotransfer ALT/SGPT 17 U/L (13-56); Alkaline Phosphatase 62 U/L (45-117); Amylase 90 U/L (25-115); Anion Gap 6 (5-15); BUN 9 mg/dL (7-18); BUN/Creat Ratio 8.7 RATIO (10-20); Calcium,Total 9.3 mg/dL (8.5-10.1); Chloride 105 mmol/L (98-107); Creatinine, Serum 1.03 mg/dL (0.55-1.02); EST Glomerular Filtration Rate 54 mL/min (>60); Est Glom Filt Rate - Afr Amer 66 mL/min (>60); Globulin 3.8 g/dL (2.2-4.2); Glucose 106 mg/dL (74-106); Lipase 433 U/L (73-393); Potassium 3.6 mmol/L (3.5-5.1); Protein, Total 7.8 g/dL (6.4-8.2); Sodium Level 138 mmol/L (136-145)
== END ==
PROVIDERS: PCP Family Medicine Geriatric Medicine; Visit Provider Family Medicine Geriatric Medicine
DX: R53.83 Other fatigue (principal)
CPT/HCPCS: 36415; 80053; 82150; 83690; 85025

== ENCOUNTER → 2020-07-21 09:51 | Outpatient (CLI) | payer MEDICARE, OTHER, SELFPAY ==
[2020-07-17 13:03] VITALS: BMI 21.1
[2020-07-21 12:51] LABS: Lipase 529 U/L (73-393)
== END ==
PROVIDERS: PCP Family Medicine Geriatric Medicine; Visit Provider Family Medicine Geriatric Medicine
DX: K85.90 Acute pancreatitis without necrosis or infection, unspecified (principal)
CPT/HCPCS: 36415; 83690

== ENCOUNTER → 2020-09-07 13:37 | Outpatient (CLI) | payer MEDICARE, OTHER, SELFPAY ==
[2020-09-07 16:22] LABS: Absolute Lymphocyte Count 2.31 X10^3/uL (0.83-4.51); Basophil# 0.03 X10^3/uL; Basophil% 0.5 % (0-1); Eosinophil# 0.18 X10^3/uL; Eosinophils% 2.9 % (0-5); Hematocrit 40.2 % (37-47); Hemoglobin 13.3 g/dL (12.0-15.0); Lymphocyte # 2.31 X10^3/ul (4.0); Lymphocyte % 37.4 % (19-41); Mean Corp Hgb Conc 33.1 g/dL (32-36); Mean Corpuscular Volume 93.7 fL (81-99); Mean Platelet Vol. 11.9 fl (6.2-12.0); Monocyte# 0.69 X10^3/uL; Monocyte% 11.2 % (0-10); NRBC Flagged by Analyzer 0 % (0-5); Neutrophil # 2.95 X10^3/uL (2.7-7.7); Neutrophil % 47.8 % (47-70); Platelet Count 211 K/mm3 (150-450); RBC Distribution Width CV 12.8 % (11.6-14.6); RBC Distribution Width SD 43.9 fl (35.1-43.9); Red Blood Count 4.29 M/mm3 (4.2-5.4); White Blood Count 6.2 K/mm3 (4.4-11.0)
[2020-09-07 16:37] LABS: Vitamin D,25 Hydroxy 16.4 ng/mL
[2020-09-07 16:43] LABS: AST(SGOT) 12 U/L (15-37); Alanine Aminotransfer ALT/SGPT 16 U/L (13-56); Albumin, Serum 3.7 g/dL (3.2-5.0); Alkaline Phosphatase 75 U/L (45-117); Anion Gap 6 (5-15); BUN 10 mg/dL (7-18); BUN/Creat Ratio 11.1 RATIO (10-20); Calcium,Total 9.2 mg/dL (8.5-10.1); Chloride 105 mmol/L (98-107); EST Glomerular Filtration Rate 63 mL/min (>60); Est Glom Filt Rate - Afr Amer 77 mL/min (>60); Globulin 3.7 g/dL (2.2-4.2); Glucose 105 mg/dL (74-106); Potassium 4.1 mmol/L (3.5-5.1); Protein, Total 7.4 g/dL (6.4-8.2); Sodium Level 139 mmol/L (136-145); Thyroid Stim Hormone (TSH) 1.62 uIU/mL (0.358-3.74)
== END ==
PROVIDERS: PCP Family Medicine Geriatric Medicine; Visit Provider Family Medicine Geriatric Medicine
DX: E11.9 Type 2 diabetes mellitus without complications (principal); E55.9 Vitamin D deficiency, unspecified; I10 Essential (primary) hypertension
CPT/HCPCS: 36415; 80053; 82306; 84443; 85025

== ENCOUNTER → 2020-09-16 15:48 | Outpatient (CLI) | payer MEDICARE, OTHER, SELFPAY ==
--- NOTE | 2020-09-16 16:10 | RAD_ITS ---
STUDY: X-RAY - ABDOMEN/PELVIS REASON FOR EXAM: Female, 84 years old. constipation x 2 weeks TECHNIQUE: AP supine and upright views of the abdomen and pelvis. COMPARISON: None. FINDINGS: Normal visualized lung bases. No dilated loops of small bowel. There is mild fecal residue of the right colon. There is no demonstrated free abdominal air. The visualized liver, spleen and kidneys are grossly normal in size and morphology. There are vascular calcifications. There are diffuse degenerative changes of the visualized lumbar spine and the pubic symphysis. RAD/Abd Inc Decub and/or Erect IMPRESSION: Right colon fecal retention. Nonobstructive bowel gas pattern. Electronically Signed: Mervin Butler MD ([place]) at 9:35 EST , Service support ,
== END ==
PROVIDERS: PCP Family Medicine Geriatric Medicine; Referring Provider Family Medicine Geriatric Medicine; Visit Provider Family Medicine Geriatric Medicine
DX: N39.0 Urinary tract infection, site not specified (principal); K56.41 Fecal impaction
CPT/HCPCS: 74019; 87086; 87088; 87186

== ENCOUNTER 2020-12-15 16:16 | Emergency (ER) | payer MEDICARE, OTHER, SELFPAY ==
[2020-12-15 16:17] VITALS: BP 199/99; PULSE 84; RESP 16; TEMP 37.2; O2SAT 96; BMI 22.9
--- NOTE | 2020-12-15 16:29 | ED.VIS.GEN ---
History of Present Illness Chief Complaint: Nausea/Vomiting Narrative: This patient is an 85-year-old female who presents with vomiting. This began suddenly just before presentation here to the emergency department within about an hour. She complains of mild epigastric discomfort but states she thinks this is just from the vomiting. No diarrhea. No fever cough chest pain or difficulty breathing. She states she felt fine this morning. No recent illness. She has been in her baseline health. She has a history of hysterectomy no other abdominal surgeries. Past Medical History - Allergies and Home Meds Allergies/Adverse Reactions: Allergies pneumococcal vaccine [Pneumococcal Vaccine] Allergy (Verified 12/15/20 16:20) Hives Primary Care Physician: John Noonan Chi, MD [COURTESY STAFF PHYSICIAN] - Past Medical History: - - Diabetes, hypertension, hyperlipidemia Surgical History: hysterectomy Smoking Status: Never smoker Review of Systems All systems negative except as indicated General: Denies: Fever Eyes: Denies: Visual changes - bilaterally ENT: Denies: Bilateral ear pain Cardiovascular: Denies: Chest pain Respiratory: Denies: Dyspnea Gastrointestinal: Reports: Abdominal pain, Nausea, Vomiting. Denies: Diarrhea Musculoskeletal: Denies: Myalgias, Arthralgias Skin: Denies: Rash Neurological: Denies: Headache Hematologic: Denies: Easy bruising Allergy: Denies: Uticaria Physical Exam Vital Signs/Narrative: Vital Signs Temp Pulse Resp BP Pulse Ox 12/15/20 16:17 98.9 F 84 16 199/99 H 96 Inital Vital Signs reviewed: Yes General: Well nourished Head: Normocephalic Eyes: EOMI ENT: Moist mucous membranes Neck: Supple Cardiovascular: Regular rate, Regular rhythm Respiratory: No distress, CTA bilaterally Abdomen: Soft, Nontender, Nondistended. Negative for: Guarding, Rebound tenderness Skin: Normal color Neurological: Alert Psychological: Normal affect Diagnostic/Tx/Re-eval Laboratory Results 12/15/20 12/15/20 12/15/20 16:50 16:50 17:15 WBC 5.2 RBC 4.53 Hgb 13.7 Hct 39.4 MCV 87.0 MCH 30.2 MCHC 34.8 RDW Std Deviation 39.3 RDW Coeff of Cheryl 12.5 Plt Count 216 MPV 11.1 Immature Gran % (Auto) 1.000 H Neut % (Auto) 60.3 Lymph % (Auto) 27.2 [place] % (Auto) 8.2 Eos % (Auto) 2.7 Baso % (Auto) 0.6 Absolute Neuts (auto) 3.2 Absolute Lymphs (auto) 1.42 Nucleated RBC % 0 Sodium 141 Potassium 2.9 L Chloride 107 Carbon Dioxide 27.0 Anion Gap 7 BUN 6 L Creatinine 0.80 Estim Creat Clear Calc 42.14 Est GFR (MDRD) Af Amer 88 Est GFR (MDRD) Non-Af 73 BUN/Creatinine Ratio 7.5 L Glucose 158 H Calcium 9.1 Total Bilirubin 0.90 AST 11 L ALT 17 Alkaline Phosphatase 112 Total Protein 7.2 Albumin 3.8 Globulin 3.4 Albumin/Globulin Ratio 1.1 Lipase 146 Urine Color Yellow Urine Clarity Cloudy Urine pH 8.0 Ur Specific [place] 1.015 Urine Protein 30 H Urine Glucose (UA) Normal Urine Ketones 5 H Urine Occult Blood 10 H Urine Nitrite Negative Urine Bilirubin Negative Urine Urobilinogen Normal Ur Leukocyte Esterase 25 H Urine RBC 0-5 SEEN Urine WBC 0-5 SEEN Ur Squamous Epith Cells 0-5 SEEN Ur Transition Epith Cell 0 SEEN Amorphous Sediment 2+ Urine Bacteria 0 SEEN Hyaline Casts 0-5 SEEN Fine Granular Casts 0-5 SEEN Urine Mucus 0 SEEN - Medical Decision Making Labs notable only for potassium of 2.9. This was replaced orally and IV. Repeat abdominal exam is benign, no tenderness, she has no further nausea and no complaints on reevaluation. She will be discharged. She does understand return for new or worsening symptoms. ED Disposition - Plan for ED Patient: Disposition: Home or Assisted Living Diagnosis: Vomiting Instructions: ED Vomiting (Adult) Referrals: John Noonan Chi, MD [COURTESY STAFF PHYSICIAN] -
[2020-12-15] MEDS: Ondansetron 4 MG/2 ML Vial IV (16:53)
[2020-12-15] MEDS: 0.9% Normal Saline 1,000 ML 1000 ML IV (16:55)
[2020-12-15 17:15] LABS: Absolute Lymphocyte Count 1.42 X10^3/uL (0.83-4.51); Absolute Neutrophil Count 3.2 X10^3/uL (2.0-7.7); Basophil# 0.03 X10^3/uL; Basophil% 0.6 % (0-1); Eosinophil# 0.14 X10^3/uL; Eosinophils% 2.7 % (0-5); Hematocrit 39.4 % (37-47); Hemoglobin 13.7 g/dL (12.0-15.0); Lymphocyte # 1.42 X10^3/ul (4.0); Lymphocyte % 27.2 % (19-41); Mean Corp Hgb Conc 34.8 g/dL (32-36); Mean Corpuscular Hgb 30.2 pg (27.0-32.0); Mean Platelet Vol. 11.1 fl (6.2-12.0); Monocyte# 0.43 X10^3/uL; Monocyte% 8.2 % (0-10); NRBC Flagged by Analyzer 0 % (0-5); Neutrophil # 3.16 X10^3/uL (2.7-7.7); Neutrophil % 60.3 % (47-70); Platelet Count 216 K/mm3 (150-450); RBC Distribution Width CV 12.5 % (11.6-14.6); RBC Distribution Width SD 39.3 fl (35.1-43.9); Red Blood Count 4.53 M/mm3 (4.2-5.4); White Blood Count 5.2 K/mm3 (4.4-11.0)
[2020-12-15 17:17] LABS: ALB/GLOB Ratio 1.1 RATIO (0.9-2.4); AST(SGOT) 11 U/L (15-37); Alanine Aminotransfer ALT/SGPT 17 U/L (13-56); Albumin, Serum 3.8 g/dL (3.2-5.0); Alkaline Phosphatase 112 U/L (45-117); Anion Gap 7 (5-15); BUN 6 mg/dL (7-18); BUN/Creat Ratio 7.5 RATIO (10-20); Calcium,Total 9.1 mg/dL (8.5-10.1); Chloride 107 mmol/L (98-107); EST Glomerular Filtration Rate 73 mL/min (>60); Est Glom Filt Rate - Afr Amer 88 mL/min (>60); Estimated Creatinine Clearance 42.14 ml/min; Globulin 3.4 g/dL (2.2-4.2); Glucose 158 mg/dL (74-106); Lipase 146 U/L (73-393); Potassium 2.9 mmol/L (3.5-5.1); Protein, Total 7.2 g/dL (6.4-8.2); Sodium Level 141 mmol/L (136-145)
[2020-12-15 17:23] LABS: Bacteria 0 SEEN /hpf (None Seen); Mucous, Urine 0 SEEN /hpf (<or=2+)
[2020-12-15 17:29] LABS: Color, Urine Yellow (Yellow); Glucose, Dipstick Normal (Normal); Ketone-Dipstick 5 mg/dl (Negative); Leukocyte Esterase-Dipstick 25 /ul (Negative); Nitrite-Dipstick Negative (Negative); Occult Blood-Urine 10 /ul (Negative); Protein-Dipstick 30 mg/dl (Negative); Specific Gravity, Urine 1.015 (1.002-1.030); Urine Bilirubin Dipstick Negative (Negative); Urine Clarity Cloudy (Clear); Urine Urobilinogen Normal (Normal)
[2020-12-15 17:39] LABS: Amorphous Sediment 2+; Hyaline Cast 0-5 SEEN /lpf (0-5); Squamous Epithelial Cells - UA 0-5 SEEN /hpf (5-10); Transitional Epithelial - Ur 0 SEEN /hpf (0-5)
[2020-12-15 17:40] LABS: Fine Granular Cast- Urine 0-5 SEEN /lpf (0-5)
[2020-12-15 17:41] LABS: White Blood Cells 0-5 SEEN /hpf (0-5)
[2020-12-15 17:42] LABS: Red Blood Cells-Urine 0-5 SEEN /hpf (0-5)
[2020-12-15 18:30] VITALS: BP 167/81; PULSE 82; O2SAT 97
[2020-12-15] MEDS: Potassium Chloride 10mEq/100mL 10 MEQ/100 ML IV.SOLN. 100 MEQ IV BOLUS ×4 (18:44→21:55)
--- NOTE | 2020-12-15 19:43 | ED.RN ---
Updated daughter with POC. She said that her brother, Dashawn Chapman would come and pick pt up when discharged.
--- NOTE | 2020-12-15 20:34 | ED.RN ---
RN FROM [facility] WILL COME TO TAKE THIS PT HOME AFTER 0282
[2020-12-15 20:41] VITALS: BP 153/104; PULSE 92; RESP 19; O2SAT 96
[2020-12-15 22:02] VITALS: BP 155/82; PULSE 99; RESP 22; O2SAT 98
--- NOTE | 2020-12-15 22:26 | ED.RN ---
Daughter here to crab picker, she is up to date on discharge instructions. Spoke with nurse at [facility] and updated her as well.
== END 2020-12-15 22:27 | disposition home or self-care (01) ==
PROVIDERS: Emergency Provider Emergency Medicine; PCP Family Medicine
DX: R11.2 Nausea with vomiting, unspecified (principal); E11.9 Type 2 diabetes mellitus without complications; Z79.84 Long term (current) use of oral hypoglycemic drugs; Z90.710 Acquired absence of both cervix and uterus
CPT/HCPCS: 80053; 81001; 83690; 85025; 96365; 96366; 96375; 99285; J7030; A4216; J2405

== ENCOUNTER → 2020-12-20 05:00 | Outpatient (REF) | payer MEDICARE, OTHER, SELFPAY ==
[2020-12-15 16:17] VITALS: BMI 22.9
[2020-12-20 08:10] LABS: Hematocrit 38.2 % (37-47); Hemoglobin 13.2 g/dL (12.0-15.0); Mean Corp Hgb Conc 34.6 g/dL (32-36); Mean Corpuscular Hgb 30.8 pg (27.0-32.0); Mean Corpuscular Volume 89.3 fL (81-99); Mean Platelet Vol. 11.2 fl (6.2-12.0); Platelet Count 221 K/mm3 (150-450); RBC Distribution Width CV 12.6 % (11.6-14.6); RBC Distribution Width SD 41.5 fl (35.1-43.9); Red Blood Count 4.28 M/mm3 (4.2-5.4); White Blood Count 5.1 K/mm3 (4.4-11.0)
[2020-12-20 08:30] LABS: ALB/GLOB Ratio 1.1 RATIO (0.9-2.4); AST(SGOT) 14 U/L (15-37); Alanine Aminotransfer ALT/SGPT 15 U/L (13-56); Albumin, Serum 3.4 g/dL (3.2-5.0); Alkaline Phosphatase 103 U/L (45-117); Anion Gap 4 (5-15); BUN 7 mg/dL (7-18); BUN/Creat Ratio 8.9 RATIO (10-20); Chloride 109 mmol/L (98-107); Creatinine, Serum 0.78 mg/dL (0.55-1.02); EST Glomerular Filtration Rate 75 mL/min (>60); Est Glom Filt Rate - Afr Amer 90 mL/min (>60); Globulin 3.2 g/dL (2.2-4.2); Glucose 131 mg/dL (74-106); Potassium 4.4 mmol/L (3.5-5.1); Protein, Total 6.6 g/dL (6.4-8.2); Sodium Level 139 mmol/L (136-145)
[2020-12-20 08:37] LABS: Hemoglobin A1c 6.6 % (3.8-5.6)
== END ==
PROVIDERS: PCP Family Medicine; Referring Provider Family Medicine; Visit Provider Family Medicine
DX: E11.9 Type 2 diabetes mellitus without complications (principal); I10 Essential (primary) hypertension; E78.5 Hyperlipidemia, unspecified
CPT/HCPCS: 36415; 80053; 83036; 85027

== ENCOUNTER → 2021-01-12 05:00 | Outpatient (REF) | payer MEDICARE, OTHER, SELFPAY ==
[2020-12-15 16:17] VITALS: BMI 22.9
[2021-01-12 08:14] LABS: Anion Gap 4 (5-15); BUN 10 mg/dL (7-18); BUN/Creat Ratio 10.8 RATIO (10-20); Calcium,Total 8.8 mg/dL (8.5-10.1); Chloride 108 mmol/L (98-107); Creatinine, Serum 0.93 mg/dL (0.55-1.02); EST Glomerular Filtration Rate 61 mL/min (>60); Est Glom Filt Rate - Afr Amer 74 mL/min (>60); Glucose 113 mg/dL (74-106); Potassium 4.2 mmol/L (3.5-5.1); Sodium Level 141 mmol/L (136-145)
== END ==
PROVIDERS: PCP Family Medicine; Referring Provider Family Medicine; Visit Provider Family Medicine
DX: I10 Essential (primary) hypertension (principal); Z79.899 Other long term (current) drug therapy
CPT/HCPCS: 36415; 80048

== ENCOUNTER 2025-01-30 16:19 | Emergency (ER) | payer MEDICARE, MEDICAID, SELFPAY ==
[2025-01-30 16:20] VITALS: BP 149/79; PULSE 111; RESP 16; TEMP 39.4; O2SAT 92; BMI 19.6
--- NOTE | 2025-01-30 16:50 | EDS_ITS ---
HPI History of Present Illness Chief Complaint: Head Injury Informant: patient Onset/Context/Timing Onset: Today Context: Gradual Onset Timing: Continuous Quality: Off-balance Location: Generalized Worsened by: Nothing Relieved by: Nothing Narrative Narrative: Patient presents with dizziness and fall that occurred today. Patient states she felt dizzy and then fell. Patient states her dizziness feels like she is off balance. Patient denies any head injury or loss of consciousness. Patient denies any paresthesias or weakness. Patient denies any headaches. Patient denies any nausea or vomiting. Patient denies any urinary complaints. Patient denies any fevers or chills. Patient is DNR comfort care only. PFSH [facility] Home Medications ?Medication ?Instructions ?Recorded ?Last Taken ?Type metformin 500 mg tablet 1,000 mg PO BID 07/17/20 Unk nown History cephalexin 500 mg capsule 500 mg PO Q6 #12 CAPSULES Unknown Rx melatonin 3 mg capsule 3 mg PO QHS PRN sleep Unknown History oseltamivir 75 mg capsule (Tamiflu) 75 mg PO BID 01/30 Unknown History Allergy/AdvReac Type Severity Reaction Status Date / Time pneumococcal vaccine Allergy Hives Verified 12/15/20 16:20 (Pneumococcal Vaccine) Social History Smoking Status: Never smoker ROS ROS ED Constitutional Constitutional ED: Denies chills or fever(s) Eyes Eyes: Denies blurry vision or change in vision ENT ENT ED: Denies rhinorrhea or sore throat Cardiovascular Cardiovascular: Denies chest pain or palpitations Respiratory/Chest Respiratory/Chest: Denies cough or dyspnea Gastrointestinal Gastrointestinal: Denies nausea or vomiting Genitourinary Genitourinary ED: Denies dysuria or hematuria Musculoskeletal Musculoskeletal: Denies back pain or neck pain Integumentary Denies abscess or rash Neurologic Neurologic: Denies headache(s) or weakness Allergic/Immunologic Allergic/Immunologic ED: Denies mouth swelling or urticaria EXAM Physical Exam Const Vital Signs: 01/30/25 16:20 01/30/25 17:31 01/30/25 18:24 Temperature 102.9 F H 100.1 F H Temperature Source Oral Oral Pulse Rate 111 H 100 Pulse Rate [Lying] Pulse Rate [Sitting (for 1 minute prior to obtaining)] Pulse Rate [Standing (for 1 minute prior to obtaining)] Respiratory Rate 16 20 H Respiratory Effort Normal Non-Labored Respiratory Depth Normal Respiratory Pattern Normal Blood Pressure 149/79 H 135/68 H Blood Pressure [Lying] Blood Pressure [Sitting (for 1 minute prior to obtaining)] Blood Pressure [Standing (for 1 minute prior to obtaining)] Blood Pressure Mean 102 90 Blood Pressure Mean [Lying] Blood Pressure Mean [Sitting (for 1 minute prior to obtaining)] Blood Pressure Mean [Standing (for 1 minute prior to obtaining)] Pulse Ox 92 94 Oxygen Delivery Method Room Air Room Air Room Air 01/30/25 18:24 01/30/25 19:00 01/30/25 19:00 Temperature 100.1 F H 99.9 F H Temperature Source Oral Oral Pulse Rate 100 92 Pulse Rate [Lying] 87 Pulse Rate [Sitting (for 1 minute prior to obtaining)] 98 Pulse Rate [Standing (for 1 minute prior to obtaining)] 105 H Respiratory Rate 20 H 12 Respiratory Effort Respiratory Depth Respiratory Pattern Blood Pressure 135/68 H 121/64 H Blood Pressure [Lying] 111/65 Blood Pressure [Sitting (for 1 minute prior to obtaining)] 107/65 Blood Pressure [Standing (for 1 minute prior to obtaining)] 91/66 Blood Pressure Mean 90 83 Blood Pressure Mean [Lying] 80 Blood Pressure Mean [Sitting (for 1 minute prior to obtaining)] 79 Blood Pressure Mean [Standing (for 1 minute prior to obtaining)] 74 Pulse Ox 94 94 Oxygen Delivery Method Room Air Room Air 01/30/25 20:00 Temperature 99 F Temperature Source Oral Pulse Rate 85 Pulse Rate [Lying] Pulse Rate [Sitting (for 1 minute prior to obtaining)] Pulse Rate [Standing (for 1 minute prior to obtaining)] Respiratory Rate 18 Respiratory Effort Respiratory Depth Respiratory Pattern Blood Pressure 113/64 Blood Pressure [Lying] Blood Pressure [Sitting (for 1 minute prior to obtaining)] Blood Pressure [Standing (for 1 minute prior to obtaining)] Blood Pressure Mean 80 Blood Pressure Mean [Lying] Blood Pressure Mean [Sitting (for 1 minute prior to obtaining)] Blood Pressure Mean [Standing (for 1 minute prior to obtaining)] Pulse Ox 95 Oxygen Delivery Method Room Air Positive well nourished and well developed General Appearance ED: well developed and NAD HEENT Reports moist mucous membranes Neck supple and no JVD Resp normal respiratory effort and clear to auscultation bilaterally Cardio regular rate and regular rhythm GI non-tender and non-distended Palpation: soft Extremity General Extremety ED: Negative for edema or tenderness General Extremity: Negative for edema Neuro oriented x3, CN's II-XII intact bilaterally and no sensory deficits noted Sensorium / Orientation: alert Motor Exam: strength 5/5 throughout Psych mental status grossly normal Skin no wounds MDM MDM MDM Narrative Medical decision making narrative: Differential diagnosis includes but is not limited to electrolyte abnormality, dehydration, urinary tract infection, pneumonia, cardiac dysrhythmia, cardiac ischemia and viral illness. CBC will be obtained to assess for leukocytosis and anemia. Basic metabolic profile will be obtained to assess for electrolyte abnormality and renal function. Urinalysis will be obtained to assess for urinary tract infection and hematuria. High-sensitivity troponin will be obtained to assess for cardiac ischemia. Chest x-ray will be obtained to assess for pneumonia and bronchitis. EKG will be obtained to assess for cardiac dysrhythmia and cardiac ischemia. Lab Data Attestation: I reviewed the patient's lab results. Lab results narrative: CBC was reviewed and was within normal limits. Basic metabolic profile was reviewed and was essentially within normal limits. Initial high-sensitivity troponin was reviewed and was 15. 2-hour repeat high-sensitivity troponin was reviewed and was 16. Urinalysis was reviewed. Leukocyte esterase was 25 with 5-10 white blood cells. There is 4+ bacteria. There are positive nitrites. COVID-19 PCR was reviewed and was negative. Influenza PCR was reviewed and was positive for influenza A and negative for influenza B. RSV PCR was reviewed and was negative. Labs: Laboratory Results - last 24 hr 01/30/25 01/30/25 17:40 18:20 WBC 8.4 RBC 4.03 L Hgb 12.5 Hct 36.2 L MCV 89.8 MCH 31.0 MCHC 34.5 RDW Std Deviation 42.0 RDW Coeff of Cheryl 12.9 Plt Count 205 MPV 10.8 Immature Gran % (Auto) 0.400 Neut % (Auto) 80.9 H Lymph % (Auto) 9.1 L Meagher % (Auto) 9.2 Eos % (Auto) 0.0 Baso % (Auto) 0.4 Absolute Neuts (auto) 6.8 Absolute Lymphs (auto) 0.76 L Nucleated RBC % 0 Sodium 133 Potassium 3.9 Chloride 97 L Carbon Dioxide 19.2 L Anion Gap 17 H BUN 13 Creatinine 1.12 Estim Creat Clear Calc 26.31 L Est GFR (MDRD) Non-Af 48 L BUN/Creatinine Ratio 11.5 Glucose 196 H Calcium 9.3 Troponin T High Sens 15 H Urine Color Yellow Urine Clarity Sl. Cloudy Urine pH 5.0 Ur Specific [place] 1.025 Urine Protein 100 H Urine Glucose (UA) Normal Urine Ketones 50 H Urine Occult Blood 50 H Urine Nitrite Positive H Urine Bilirubin Negative Urine Urobilinogen Normal Ur Leukocyte Esterase 25 H Urine RBC 0 SEEN Urine WBC 5-10 SEEN Ur Squamous Epith Cells 0-5 SEEN Urine Bacteria 4+ Urine Mucus 0 SEEN Radiography Chest X-Ray - ED: 2 View, Read by ED Physician, Read by Radiologist, No Acute Disease and Chronic Changes Diagnostic Testing: Clinical Impression(s) from Imaging Studies Chest X-Ray 01/30/25 17:40 IMPRESSION: Stable findings of emphysema. No acute abnormality. Reading Location: [facility] PA and lateral chest x-ray was obtained. There are 2 views. On my independent interpretation, lung hewitt show chronic changes of emphysema. There is normal cardiac silhouette. Bony thorax is normal. There is no acute process noted. Radiologist also interpreted the x-ray and agrees. EKG Initial EKG: Attestation: I personally reviewed and interpreted this EKG as follows: Interpretation: No Acute Injury Pattern and Sinus Tachycardia (106) Comments: EKG was obtained. On my independent interpretation, shows sinus tachycardia with a rate of 106. KS interval was normal at 148 ms. QRS interval was normal at 72 ms. QTc interval was normal at 443. There is left axis deviation at -37. There is borderline criteria for left ventricular hypertrophy. There are no acute ST or T wave changes. Prior EKG tracings: available for review Prior: Unchanged (07/17/2020) Additional Tests and Interventions Additional Tests or Interventions: Urine culture was ordered. Treatment and Re-Evaluation :: Orthostatic vital signs were obtained. Blood pressure went from 111 systolic laying flat to 91 systolic standing up. Heart rate went from 87 laying flat to 105 standing. Patient was able to ambulate to the bathroom without difficulty. Patient was advised of her findings. Patient was given a prescription for Keflex for her urinary tract infection. Patient was instructed to follow-up with her primary care physician in 5 to 7 days. Patient understood and was agreeable with the plan. All questions were answered. Discharge Plan Triage Chief Complaint: Head Injury Other Complaint: Dizziness ED Provider: Thai Short Dx/Rx/DC Orders Clinical Impression: Influenza A, Urinary tract infection Instructions: ED Influenza (Adult), ED Cystitis Female Adult Prescriptions: New cephalexin 500 mg capsule 500 mg PO Q6 Qty: 12 0RF No Action metformin 500 MG tablet 1,000 mg PO BID melatonin 3 mg capsule 3 mg PO QHS PRN (Reason: sleep) oseltamivir [Tamiflu] 75 mg capsule 75 mg PO BID Rx Instructions: start 01/30 end 02/04 Primary Care Provider: Dillon Bolton Referrals: Sonia Powell MD [Med Staff - Applied Behavior Science Specialist] - 5-7 Days Print Language: Hungarian Disposition Disposition: Home, Self Care
--- NOTE | 2025-01-30 16:55 | EKG12_ITS ---
Test Reason : Blood Pressure : */* mmHG Vent. Rate : 106 BPM Atrial Rate : 106 BPM P-R Int : 148 ms QRS Dur : 72 ms QT Int : 334 ms P-R-T Axes : 37 -37 68 degrees QTcB Int : 443 ms Poor data quality, interpretation may be adversely affected Sinus tachycardia Left axis deviation Minimal voltage criteria for LVH, may be normal variant ( R in aVL ) Abnormal ECG Confirmed by JOHNNY LAZARO, FILI ([id number]), movie editor CARLOS RANDLE ([id number]) on 02/02/2025 6:45:01 AM Referred By: Confirmed By: FILI TURNER MD
[2025-01-30] MEDS: Acetaminophen 500 MG Tablet 1000 MG PO (17:25)
--- NOTE | 2025-01-30 17:40 | RAD_ITS ---
PROCEDURE: CHEST PA AND LATERAL 01/30/2025 REASON FOR EXAM: 89-year-old female, weakness, fall earlier. TECHNIQUE: Frontal and lateral views of the chest. COMPARISON: Chest radiograph 07/17/2020. FINDINGS: The heart size is normal. There are atherosclerotic calcifications of the thoracic aorta. Stable findings of emphysema. Bibasilar atelectasis/scarring. No focal consolidation, pleural effusion or pneumothorax. Degenerative changes are identified within the thoracic spine. RAD/Chest PA and Lateral IMPRESSION: Stable findings of emphysema. No acute abnormality. Reading Location: [facility]
[2025-01-30 18:01] LABS: Absolute Lymphocyte Count 0.76 X10^3/uL (0.83-4.51); Absolute Neutrophil Count 6.8 X10^3/uL (2.0-7.7); Basophil# 0.03 X10^3/uL; Basophil% 0.4 % (0-1); Hematocrit 36.2 % (37-47); Hemoglobin 12.5 g/dL (12.0-15.0); Lymphocyte # 0.76 X10^3/ul (0.83-4.51); Lymphocyte % 9.1 % (19-41); Mean Corp Hgb Conc 34.5 g/dL (32-36); Mean Corpuscular Volume 89.8 fL (81-99); Mean Platelet Vol. 10.8 fl (6.2-12.0); Monocyte# 0.77 X10^3/uL; Monocyte% 9.2 % (0-10); NRBC Flagged by Analyzer 0 % (0-5); Neutrophil # 6.78 X10^3/uL (2.7-7.7); Neutrophil % 80.9 % (47-70); Platelet Count 205 K/mm3 (150-450); RBC Distribution Width CV 12.9 % (11.6-14.6); Red Blood Count 4.03 M/mm3 (4.2-5.4); White Blood Count 8.4 K/mm3 (4.4-11.0)
[2025-01-30 18:24] VITALS: BP 135/68; PULSE 100; RESP 20; TEMP 37.8; O2SAT 94
[2025-01-30 18:26] LABS: Mucous, Urine 0 SEEN /hpf (<or=2+)
[2025-01-30 18:29] LABS: Color, Urine Yellow (Yellow); Glucose, Dipstick Normal (Normal); Ketone-Dipstick 50 mg/dl (Negative); Leukocyte Esterase-Dipstick 25 /ul (Negative); Nitrite-Dipstick Positive (Negative); Occult Blood-Urine 50 /ul (Negative); Protein-Dipstick 100 mg/dl (Negative); Specific Gravity, Urine 1.025 (1.002-1.030); Urine Bilirubin Dipstick Negative (Negative); Urine Clarity Sl. Cloudy (Clear); Urine Urobilinogen Normal (Normal)
[2025-01-30 18:35] LABS: Bacteria 4+ /hpf (None Seen); Red Blood Cells-Urine 0 SEEN /hpf (0-5); Squamous Epithelial Cells - UA 0-5 SEEN /hpf (5-10); White Blood Cells 5-10 SEEN /hpf (0-5)
[2025-01-30 18:45] LABS: Anion Gap 17 (5-15); BUN 13 mg/dL (4-19); BUN/Creat Ratio 11.5 RATIO (10-20); Calcium,Total 9.3 mg/dL (7.6-11.0); Carbon Dioxide 19.2 mmol/L (21.0-32.0); Chloride 97 mmol/L (98-108); Creatinine, Serum 1.12 mg/dL (0.70-1.20); EST Glomerular Filtration Rate 48 (>60); Estimated Creatinine Clearance 26.31 ml/min (50-250); Glucose 196 mg/dL (70-99); Potassium 3.9 mmol/L (3.3-5.1); Sodium Level 133 mmol/L (133-145); Troponin T High Sensitivity 15 ng/L (<=14)
[2025-01-30 19:00] VITALS: BP 107/65; BP 111/65; BP 121/64; BP 91/66; PULSE 105; PULSE 87; PULSE 92; PULSE 98; RESP 12; TEMP 37.7; O2SAT 94
[2025-01-30 20:00] VITALS: BP 113/64; PULSE 85; RESP 18; TEMP 37.2; O2SAT 95
[2025-01-30 20:13] LABS: Troponin T High Sens 2 HR 16 ng/L (<=14)
[2025-01-30] MEDS: 0.9% Normal Saline (1000mL) 1,000 ML 1000 ML IV (20:36)
[2025-01-30 21:00] VITALS: BP 129/60; PULSE 82; RESP 16; RESP 19; TEMP 37.1; O2SAT 96
[2025-01-30] MEDS: Cephalexin 500 MG Capsule PO (21:06)
[2025-01-30 22:00] VITALS: BP 115/65; PULSE 76; RESP 15; O2SAT 95
== END 2025-01-30 22:59 | disposition home or self-care (01) ==
PROVIDERS: Emergency Provider Emergency Medicine; PCP Family Medicine; Visit Provider Emergency Medicine
DX: J10.1 Influenza due to other identified influenza virus with other respiratory manifestations (principal); N39.0 Urinary tract infection, site not specified; Z66 Do not resuscitate; R42 Dizziness and giddiness; W19.XXXA Unspecified fall, initial encounter
CPT/HCPCS: 71046; 80048; 81001; 84484; 85025; 87077; 87086; 87088; 87186; 87631; 93005; 96360; 96361; 99285; A4216

== ENCOUNTER 2025-03-22 14:23 | Inpatient (IN) | payer MEDICARE, MEDICAID, SELFPAY ==
[2025-03-22 14:23] VITALS: BP 143/66; PULSE 90; RESP 18; TEMP 37; O2SAT 100; BMI 21.1
--- NOTE | 2025-03-22 14:51 | EKG12_ITS ---
Test Reason : Blood Pressure : */* mmHG Vent. Rate : 83 BPM Atrial Rate : 83 BPM P-R Int : 162 ms QRS Dur : 68 ms QT Int : 372 ms P-R-T Axes : 76 -15 71 degrees QTcB Int : 437 ms Normal sinus rhythm Normal ECG Confirmed by Jose Monte ([id number]), social media editor CARLOS RANDLE ([id number]) on 03/23/2025 9:22:31 AM Referred By: Madeleine Cazares Confirmed By: Jose Monte
--- NOTE | 2025-03-22 14:52 | EDS_ITS ---
HPI HPI - Fall History of Present Illness Chief Complaint: Fall Informant: patient and family Narrative Narrative: 89-year-old mechanical fall, she was with family who was trying to help her up over a curb but she got her foot caught causing her to fall onto her right hip, she is having acute pain there and inability to move it or bear weight. She denies any other injury. Family confirms she did not hit her head. She is on no anticoagulants. She currently living in a skilled nursing. She does not use any devices or assistance to ambulate at baseline and has never had hip surgery in the past. She denies any numbness or weakness in the leg/foot. She denies any other pain or injury. No prodromal symptoms. PFSH PFSH Home Medications ?Medication ?Instructions ?Recorded ?Last Taken ?Type melatonin 3 mg capsule 3 mg PO QHS PRN sleep Unknown History bisacodyl 10 mg rectal suppository 10 mg CO DAILY PRN constipation 03/22/25 Unknown History glucagon 1 mg solution for 1 mg IM Q20M PRN hypoglycem ia 03/22/25 Unknown History injection (Glucagon Emergency Kit) magnesium hydroxide 400 mg/5 mL 30 ml PO DAILY PRN con stipation 03/22/25 Unknown History oral suspension (Milk of Magnesia) metformin 1,000 mg tablet 1,000 mg PO BID 03/22/25 Unk nown History mineral oil (Fleet Mineral Oil 118 ml CO DAILY PRN con stipation 03/22/25 Unknown History enema) Allergy/AdvReac Type Severity Reaction Status Date / Time pneumococcal vaccine Allergy Hives Verified 03/22/25 14:23 (Pneumococcal Vaccine) Social History Smoking Status: Never smoker ROS ROS ED Constitutional Constitutional ED: Denies chills or fever(s) Eyes Eyes: Denies change in vision or diplopia ENT ENT ED: Denies rhinorrhea or sore throat Cardiovascular Cardiovascular: Denies chest pain or palpitations Respiratory/Chest Respiratory/Chest: Denies cough or dyspnea Gastrointestinal Gastrointestinal: Denies abdominal pain, diarrhea, nausea or vomiting Genitourinary Genitourinary ED: Denies dysuria or hematuria Musculoskeletal Musculoskeletal: Reports extremity pain; Denies neck pain Integumentary Denies Abrasions, rash or wounds Neurologic Neurologic: Denies paresthesias or weakness Psychiatric Psychiatric: Denies suicidal thoughts EXAM Physical Exam Const Vital Signs: 03/22/25 14:23 03/22/25 14:23 Temperature 98.6 F Temperature Source Oral Pulse Rate 90 Respiratory Rate 18 Respiratory Effort Normal Respiratory Depth Normal Respiratory Pattern Normal Blood Pressure 143/66 H Blood Pressure Mean 91 Pulse Ox 100 Oxygen Delivery Method Room Air Room Air Positive well nourished and well developed General Appearance ED: well developed and NAD HEENT Reports moist mucous membranes normocephalic and atraumatic Eyes PERRL and EOMs intact bilaterally Neck full ROM and supple Resp normal respiratory effort and clear to auscultation bilaterally Cardio regular rate, regular rhythm and no murmurs GI non-tender and non-distended Auscultation: normoactive bowel sounds Palpation: soft Back/Spine normal ROM and normal to inspection General Back: other FROM Extremity Extremity Narrative: Right hip deformity, she is holding it in flexion and the knee in flexion as well, very tender at the greater trochanter and anteriorly about the proximal thigh. Pelvis is stable to AP compression. Full range of motion throughout the other 3 extremities. The right knee and ankle are nontender without deformities. 2+/4 dorsalis pedis pulses. She neurovascular intact distally. General Extremety ED: Yes tenderness; Negative for edema or pulses abnormal General Extremity: Negative for edema or pulses abnormal Neuro oriented x3, no focal motor deficits and no sensory deficits noted Sensorium / Orientation: alert Motor Exam: strength 5/5 throughout Psych mental status grossly normal and thought process normal Skin no wounds Rashes: no rashes MDM MDM MDM Narrative Medical decision making narrative: Clinically very suspicious for an acute right hip fracture. This is confirmed on 3 view hip x-ray, showing on my interpretation a subcapital displaced hip fracture. Patient was given morphine for her pain, preoperative labs and chest x-ray and EKG were obtained, the 1 view chest x-ray is unremarkable my interpretation. Discussed with hospitalist for admission, discussed with Dr. Ballesteros for operative management. Lab Data Attestation: I reviewed the patient's lab results. Labs: Laboratory Results - last 24 hr 03/22/25 14:52 WBC 9.9 RBC 3.84 L Hgb 11.9 L Hct 34.5 L MCV 89.8 MCH 31.0 MCHC 34.5 RDW Std Deviation 43.8 RDW Coeff of Cheryl 13.3 Plt Count 230 MPV 10.7 Immature Gran % (Auto) 0.600 Neut % (Auto) 63.9 Lymph % (Auto) 22.0 [place] % (Auto) 9.3 Eos % (Auto) 3.8 Baso % (Auto) 0.4 Absolute Neuts (auto) 6.4 Absolute Lymphs (auto) 2.18 Nucleated RBC % 0 Sodium 135 Potassium 4.4 Chloride 101 Carbon Dioxide 19.8 L Anion Gap 14 BUN 16 Creatinine 1.07 Estim Creat Clear Calc 27.95 L Est GFR (MDRD) Non-Af 50 L BUN/Creatinine Ratio 14.7 Glucose 153 H Calcium 9.3 Radiography Diagnostic Testing: Clinical Impression(s) from Imaging Studies Chest X-Ray 03/22/25 15:05 IMPRESSION: No focal consolidations Reading Location: [facility] Hip/Pelvis X-Ray 03/22/25 15:05 IMPRESSION: Acute, displaced fracture of the right femoral neck with superior displacement of the femur. There is no femoral head dislocation. [id number] degenerative changes of the right hip. Mild associated soft tissue swelling. No radiographic foreign body. Reading Location: [facility] Rhythm Strip Rhythm Strip: Sinus Rhythm Rate: 90 Ectopy: None EKG Initial EKG: Attestation: I personally reviewed and interpreted this EKG as follows: Interpretation: Sinus Rhythm (83) and No Acute Injury Pattern Comments: Nml axis & intervals; nml EKG Management Discussion w/another healthcare provider: Hospitalist and Roof Fitter (Ortho Dr. Ballesteros) Discharge Plan Dx/Rx/DC Orders Clinical Impression: Closed subcapital fracture of neck of right femur, Fall from slip, trip, or stumble Disposition Disposition: Acute Care Hospital [facility]
[2025-03-22 15:03] LABS: Absolute Lymphocyte Count 2.18 X10^3/uL (0.83-4.51); Absolute Neutrophil Count 6.4 X10^3/uL (2.0-7.7); Basophil# 0.04 X10^3/uL; Basophil% 0.4 % (0-1); Eosinophil# 0.38 X10^3/uL; Eosinophils% 3.8 % (0-5); Hematocrit 34.5 % (37-47); Hemoglobin 11.9 g/dL (12.0-15.0); Lymphocyte # 2.18 X10^3/ul (0.83-4.51); Mean Corp Hgb Conc 34.5 g/dL (32-36); Mean Corpuscular Volume 89.8 fL (81-99); Mean Platelet Vol. 10.7 fl (6.2-12.0); Monocyte# 0.92 X10^3/uL; Monocyte% 9.3 % (0-10); NRBC Flagged by Analyzer 0 % (0-5); Neutrophil # 6.35 X10^3/uL (2.7-7.7); Neutrophil % 63.9 % (47-70); Platelet Count 230 K/mm3 (150-450); RBC Distribution Width CV 13.3 % (11.6-14.6); RBC Distribution Width SD 43.8 fl (35.1-43.9); Red Blood Count 3.84 M/mm3 (4.2-5.4); White Blood Count 9.9 K/mm3 (4.4-11.0)
--- NOTE | 2025-03-22 15:05 | RAD_ITS ---
PROCEDURE: CHEST 1 VIEW (PORTABLE) 03/22/2025 REASON FOR EXAM: FALL TECHNIQUE: Frontal view of the chest. COMPARISON: 01/30/25 FINDINGS: No focal consolidation. No pleural effusion or pneumothorax. Calcified aortic arch. Cardiac silhouette is unremarkable. No acute fractures. RAD/Chest 1 View (Portable) IMPRESSION: No focal consolidations Reading Location: [facility]
--- NOTE | 2025-03-22 15:05 | RAD_ITS ---
PROCEDURE: HIP, UNI W/ PELVIS 2-3 VIEWS 03/22/2025 REASON FOR EXAM: INJURY TECHNIQUE: Three views of the right COMPARISON: None RAD/HIP, UNI W/ Pelvis 2-3 Views IMPRESSION: Acute, displaced fracture of the right femoral neck with superior displacement of the femur. There is no femoral head dislocation. [id number] degenerative changes of the right hip. Mild ass ociated soft tissue swelling. No radiographic foreign body. Reading Location: [facility]
[2025-03-22] MEDS: Morphine 4 MG/ML Syringe IV ×3 (15:16→22:35)
[2025-03-22] MEDS: Ondansetron 4 MG/2 ML Vial IV (15:16)
[2025-03-22 15:26] LABS: Anion Gap 14 (5-15); BUN 16 mg/dL (4-19); BUN/Creat Ratio 14.7 RATIO (10-20); Calcium,Total 9.3 mg/dL (7.6-11.0); Carbon Dioxide 19.8 mmol/L (21.0-32.0); Chloride 101 mmol/L (98-108); Creatinine, Serum 1.07 mg/dL (0.70-1.20); EST Glomerular Filtration Rate 50 (>60); Estimated Creatinine Clearance 27.95 ml/min (50-250); Glucose 153 mg/dL (70-99); Potassium 4.4 mmol/L (3.3-5.1); Sodium Level 135 mmol/L (133-145)
--- NOTE | 2025-03-22 15:55 | CASEMGMT ---
Care Management Face to Face with patient for initial transition planning/care coordination assessment in the ED.? This pattern chart writer introduced self and role at [facility]. Patient alert and oriented. Patient willing to participate in assessment and is able to answer all questions appropriately.? Care providers, pharmacy, and demographics verified. ?Patient?s son Cristofer Campbell and his Any were present as well as patient?s ?adopted son/close friend? Bob Sharma was also present who is also patient?s POA. All present assisted with assessment due to patient experiencing a high level of pain. Admitting Diagnosis: Closed sub capital fracture of neck of right femur. Other diagnosis history: Including but not limited to: Diabetes, Hypertension, Hyperlipidemia and Dementia. PCP: Dr. Dillon Bolton Specialists: None Preferred Pharmacy: Pharmacy utilized by the current SNF. Insurance: [facility] through Medicaid. Prescription Benefit: Yes Living Will/HPOA: ?Yes. Patient?s friend, Bob Sharma is listed as patient?s POA . Mr. Sharma provided a copy of the paperwork which will be scanned into patient?s electronic medical records. LNOK: Patient is .? Patient has a son, Cristofer, of [place] and a daughter, Bonnie of [place]. Living Arrangements: Patient has been residing at [facility] for the past 3-4 years. Transportation: Zachary and Cristofer provide all transportation needs. DME: Grab bar in the shower and by the toilet, pull-cord and hospital bed. Patient will likely be in need of additional DME upon discharge which may include but not limited to: shower chair, rollator and/or wheelchair, RTS and/or BSC. HHC: Denied a history of. SNF/Rehab: Patient is currently residing in a [facility] and also lived at [facility] around 2018 where she lived for approximately 1 year. Community Resources: None and none needed at this time per patient and patient?s family. Behavioral Health History: Dementia. Patient?s family reported patient struggles with short-term memory loss the most. Patient goals: Patient wishes to discharge back to the SNF/[facility] when medically ready. Patient will need to be further assessed for potential additional needs. Disposition Plan: admission to acute; RN CM/SW to follow for discharge planning needs that may arise. Kait Maya, TECTONOPHYSICIST, FABRIC NORMALIZER
[2025-03-22] MEDS: HYDROmorphone 0.5 MG/0.5 ML SYRINGE IV ×2 (16:09→20:15)
[2025-03-22 16:14] VITALS: BP 146/83; PULSE 86; RESP 18; TEMP 36.7; O2SAT 97
--- NOTE | 2025-03-22 16:22 | PCM.HP.STD ---
HPI - General General Date of Admission: 03/22/25 Date of Service: 03/22/25 Chief Complaint: Right hip pain HPI Narrative JAYLEN GODWIN, is a 89-year-old female with a history of diabetes presented to [facility] ED 03/22/2025 with mechanical fall onto her right hip as her family tried to help her over a curb. Patient developed pain and inability to move it or bear weight so she came to the ED. Currently resides in a long term and does not use any devices or assistance to ambulate at baseline and has no history of hip surgery. No present numbness or weakness in the leg and foot. In the ED temperature 98.6, pulse ox 100% on room air with respiratory rate of 18, heart rate 90 with blood pressure 143/66. White blood cell count within normal limits and hemoglobin 11.9. BMP w/ Cr 1.07 which is similar to previous. Hip and pelvis x-ray did show a right femoral neck fracture. Ortho contacted and recommended medicine admit with Ortho consult. Hospitalist contacted for mission. Patient evaluated bedside with family present, she is in a lot of pain presently but denies any ROS prior to her mechanical fall, currently having the pain but no sensory changes and no other acute complaints PFSH Home Medications ?Medication ?Instructions ?Recorded ?Last Taken ?Type melatonin 3 mg capsule 3 mg PO QHS PRN sleep 01/30/25 Unknown History bisacodyl 10 mg rectal suppository 10 mg [place] DAILY PRN constipation 03/22/25 Unknown History glucagon 1 mg solution for 1 mg IM Q20M PRN hypoglycemia 03/22/25 Unknown History injection (Glucagon Emergency Kit) magnesium hydroxide 400 mg/5 mL 30 ml PO DAILY PRN constipation 03/22/25 Unknown History oral suspension (Milk of Magnesia) metformin 1,000 mg tablet 1,000 mg PO BID 03/22/25 Unknown History mineral oil (Fleet Mineral Oil 118 ml [place] DAILY PRN constipation 03/22/25 Unknown History enema) Allergy/AdvReac Type Severity Reaction Status Date / Time pneumococcal vaccine Allergy Hives Verified 03/22/25 14:23 (Pneumococcal Vaccine) Social History Smoking Status: Never smoker ROS ROS Narrative Aside from her right hip pain ROS otherwise negative Vital Signs Vital Signs Vital Signs: 03/22/25 14:23 03/22/25 14:23 03/22/25 16:14 Temperature 98.6 F 98.0 F Temperature Source Oral Pulse Rate 90 86 Respiratory Rate 18 18 Respiratory Effort Normal Respiratory Depth Normal Respiratory Pattern Normal Blood Pressure 143/66 H 146/83 H Blood Pressure Mean 91 104 Pulse Ox 100 97 Oxygen Delivery Method Room Air Room Air Weight Weight: 50.8 kg Body Mass Index (BMI) 21.1 Physical Exam Narrative General: Alert, oriented, no apparent distress HEENT: Atraumatic, normocephalic Eyes: Anicteric, normal conjunctiva, extraocular movements grossly intact Neck: Supple Respiratory: Clear to auscultation bilaterally, normal respiratory effort Cardiovascular: Regular rate and rhythm GI: Soft, nontender, nondistended Extremities: No edema Musculoskeletal: Right lower extremity externally rotated patient not moving it Neuro: No overt focal neurological deficits Skin: No rashes appreciated Psych: Cooperative Results Lab / Micro Data 03/22/25 14:52 03/22/25 14:52 Labs: Laboratory Results - last 24 hr 03/22/25 14:52: WBC 9.9, RBC 3.84 L, Hgb 11.9 L, Hct 34.5 L, MCV 89.8, MCH 31.0, MCHC 34.5, RDW Std Deviation 43.8, RDW Coeff of Cheryl 13.3, Plt Count 230, MPV 10.7, Immature Gran % (Auto) 0.600, Neut % (Auto) 63.9, Lymph % (Auto) 22.0, [place] % (Auto) 9.3, Eos % (Auto) 3.8, Baso % (Auto) 0.4, Absolute Neuts (auto) 6.4, Absolute Lymphs (auto) 2.18, Nucleated RBC % 0, Sodium 135, Potassium 4.4, Chloride 101, Carbon Dioxide 19.8 L, Anion Gap 14, BUN 16, Creatinine 1.07, Estim Creat Clear Calc 27.95 L, Est GFR (MDRD) Non-Af 50 L, BUN/Creatinine Ratio 14.7, Glucose 153 H, Calcium 9.3 Rhythm Strip Rhythm Strip: Sinus Rhythm Rate: 90 Ectopy: None Imaging Radiology Impression Chest X-Ray 03/22/25 15:05 IMPRESSION: No focal consolidations Reading Location: [facility] Hip/Pelvis X-Ray 03/22/25 15:05 IMPRESSION: Acute, displaced fracture of the right femoral neck with superior displacement of the femur. There is no femoral head dislocation. [id number] degenerative changes of the right hip. Mild associated soft tissue swelling. No radiographic foreign body. Reading Location: [facility] Assessment & Plan Assessment/Plan (1) Closed subcapital fracture of neck of right femur: PLAN: Plan # Right hip fracture -Seen on x-ray -Pain control/supportive care -Ortho consult -Will need postop PT/OT -Case management consult #Type 2 diabetes mellitus -Glucose checks and sliding scale insulin #DVT ppx: SCDs Madeleine Cazares MD Charges/Coding Visit Charges Inpatient E&M: 45717 Init Hosp L1
[2025-03-22 16:46] VITALS: BMI 20.2
[2025-03-22 16:47] VITALS: BP 166/93; PULSE 86; RESP 18; TEMP 37.6; O2SAT 96
[2025-03-22] MEDS: 0.9% Saline Lock 10 ML Syringe IV ×2 (17:10→20:15)
[2025-03-22] MEDS: 0.9% Normal Saline (1000mL) 1,000 ML 50 ML IV (17:10)
[2025-03-22] MEDS: oxyCODONE 5 MG Tablet PO ×2 (17:12→21:35)
[2025-03-22 19:45] VITALS: O2SAT 98
--- NOTE | 2025-03-22 19:47 | CONS.ORTHO ---
HPI Consult Data Date of Consult: 03/22/25 HPI Narrative HPI Narrative: JAYLEN GODWIN, is a 89 F who presents after sustaining a mechanical fall on March 21, 2025. She normally ambulates without assistive devices. Patient does have some dementia. After falling she was not able to get up. She was brought to the hospital and diagnosed with a displaced right femoral neck fracture. Orthopedics was appropriately consulted. Patient seen with multiple family members present. [facility] Home Medications ?Medication ?Instructions ?Recorded ?Last Taken ?Type melatonin 3 mg capsule 3 mg PO QHS PRN sleep 01/30/25 Unknown History bisacodyl 10 mg rectal suppository 10 mg [place] DAILY PRN constipation 03/22/25 Unknown History glucagon 1 mg solution for 1 mg IM Q20M PRN hypoglycemia 03/22/25 Unknown History injection (Glucagon Emergency Kit) magnesium hydroxide 400 mg/5 mL 30 ml PO DAILY PRN constipation 03/22/25 Unknown History oral suspension (Milk of Magnesia) metformin 1,000 mg tablet 1,000 mg PO BID 03/22/25 Unknown History mineral oil (Fleet Mineral Oil 118 ml [place] DAILY PRN constipation 03/22/25 Unknown History enema) Allergy/AdvReac Type Severity Reaction Status Date / Time pneumococcal vaccine Allergy Hives Verified 03/22/25 14:23 (Pneumococcal Vaccine) Social History Smoking Status: Never smoker ROS ROS Narrative According to the patient's family she has very poor eyesight. She does have glasses. They deny any problem with head or neck, no chest pain no shortness of breath no productive cough, no bowel or bladder dysfunction. Vital Signs Vital Signs Vital Signs: 03/22/25 14:23 03/22/25 14:23 03/22/25 16:14 Temperature 98.6 F 98.0 F Temperature Source Oral Pulse Rate 90 86 Respiratory Rate 18 18 Respiratory Effort Normal Respiratory Depth Normal Respiratory Pattern Normal Blood Pressure 143/66 H 146/83 H Blood Pressure Mean 91 104 Blood Pressure Source Blood Pressure Position Blood Pressure Location Pulse Ox 100 97 Oxygen Delivery Method Room Air Room Air 03/22/25 16:47 Temperature 99.6 F H Temperature Source Oral Pulse Rate 86 Respiratory Rate 18 Respiratory Effort Respiratory Depth Respiratory Pattern Blood Pressure 166/93 H Blood Pressure Mean 117 Blood Pressure Source Monitor Blood Pressure Position Semi-Fowlers Blood Pressure Location Left Arm Pulse Ox 96 Oxygen Delivery Method Room Air Weight Weight: 48.489 kg Body Mass Index (BMI) 20.2 Physical Exam Narrative Right hip has shortening and external rotation. Right hip has pain on palpation. Left hip had no pain on palpation. Left hip has no pain with rotation. She can gently plantarflex dorsiflex toes and ankles. Pulses seem to be intact. No signs of skin sores noted. No calf pain or swelling. Negative Homans' sign. Lab / Micro Data Attestation: I reviewed the patient's lab results. 03/22/25 14:52 03/22/25 14:52 Labs: Laboratory Results - last 24 hr 03/22/25 14:52: WBC 9.9, RBC 3.84 L, Hgb 11.9 L, Hct 34.5 L, MCV 89.8, MCH 31.0, MCHC 34.5, RDW Std Deviation 43.8, RDW Coeff of Cheryl 13.3, Plt Count 230, MPV 10.7, Immature Gran % (Auto) 0.600, Neut % (Auto) 63.9, Lymph % (Auto) 22.0, [place] % (Auto) 9.3, Eos % (Auto) 3.8, Baso % (Auto) 0.4, Absolute Neuts (auto) 6.4, Absolute Lymphs (auto) 2.18, Nucleated RBC % 0, Sodium 135, Potassium 4.4, Chloride 101, Carbon Dioxide 19.8 L, Anion Gap 14, BUN 16, Creatinine 1.07, Estim Creat Clear Calc 27.95 L, Est GFR (MDRD) Non-Af 50 L, BUN/Creatinine Ratio 14.7, Glucose 153 H, Calcium 9.3 Rhythm Strip Rhythm Strip: Sinus Rhythm Rate: 90 Ectopy: None Imaging Radiology Impression Chest X-Ray 03/22/25 15:05 IMPRESSION: No focal consolidations Reading Location: [facility] Hip/Pelvis X-Ray 03/22/25 15:05 IMPRESSION: Acute, displaced fracture of the right femoral neck with superior displacement of the femur. There is no femoral head dislocation. [id number] degenerative changes of the right hip. Mild associated soft tissue swelling. No radiographic foreign body. Reading Location: [facility] Assessment & Plan Assessment/Plan (1) Closed subcapital fracture of neck of right femur: QUALIFIERS: Encounter type: initial encounter Qualified Code(s): S72.011A - Unspecified intracapsular fracture of right femur, initial encounter for closed fracture PLAN: Patient and her family were explained her diagnosis and treatment options of a displaced right femoral neck fracture. Surgical and nonsurgical options discussed. Risk of surgery including but not limited to from operative or postoperative complications. Risk of anesthetic complications such as heart attacks, strokes, seizures, or . Risk of infections. Risk of damage to nerves arteries tendons. Risk of inadvertent fractures or dislocations. Risk of bone or wound healing complications. Possibility of nonunion malunion pain stiffness weakness. Possible need for further surgery such as hardware removal. Risk of DVT PE and other potential complications could lead to or disability explained. No guarantees were stated or implied. All of their questions were answered. Appropriate informed consent was obtained and signed for surgical intervention. They would like to proceed with hemiarthroplasty. They understand I may or may not be the surgeon performing the procedure. One of my physician associates may be doing it if their schedule allows. They understand we will plan to use preoperative antibiotic. Also medication postoperatively for DVT prevention will be planned. Plan will be weightbearing as tolerated after surgery.. Case has been discussed with the patient's nurse. Also case discussed with Dr. Littlejohn who may be taking over her care tomorrow
[2025-03-22 19:53] VITALS: BP 135/84; PULSE 95; RESP 18; TEMP 36.6; O2SAT 97
[2025-03-22] MEDS: Senna/Docusate Sodium 1 Tablet 2 TABLET PO (21:35)
[2025-03-22] MEDS: Acetaminophen 500 MG Tablet 1000 MG PO (21:35)
[2025-03-22 22:00] LABS: Bedside Glucose 170 mg/dL (74-106)
[2025-03-22] MEDS: MELATONIN 3 MG TABLET 10 MG PO (22:35)
[2025-03-23] VITALS (14 sets, daily range): BP systolic 131–159; BP diastolic 71–94; PULSE 78–107; RESP 12–18; TEMP 36.4–37.4; O2SAT 93–99; BMI 20.2
[2025-03-23 06:02] LABS: Absolute Lymphocyte Count 1.63 X10^3/uL (0.83-4.51); Basophil# 0.03 X10^3/uL; Basophil% 0.3 % (0-1); Eosinophil# 0.26 X10^3/uL; Eosinophils% 2.9 % (0-5); Hematocrit 31.7 % (37-47); Hemoglobin 10.9 g/dL (12.0-15.0); Lymphocyte # 1.63 X10^3/ul (0.83-4.51); Lymphocyte % 18.5 % (19-41); Mean Corp Hgb Conc 34.4 g/dL (32-36); Mean Corpuscular Volume 90.1 fL (81-99); Mean Platelet Vol. 10.8 fl (6.2-12.0); Monocyte# 0.85 X10^3/uL; Monocyte% 9.6 % (0-10); NRBC Flagged by Analyzer 0 % (0-5); Neutrophil # 6.02 X10^3/uL (2.7-7.7); Neutrophil % 68.2 % (47-70); Platelet Count 203 K/mm3 (150-450); RBC Distribution Width CV 13.4 % (11.6-14.6); RBC Distribution Width SD 43.8 fl (35.1-43.9); Red Blood Count 3.52 M/mm3 (4.2-5.4); White Blood Count 8.8 K/mm3 (4.4-11.0)
[2025-03-23 06:14] LABS: Prothrombin Time (Protime)PT. 13.7 SECONDS (11.7-14.9)
[2025-03-23 06:28] LABS: Anion Gap 12 (5-15); BUN 12 mg/dL (4-19); BUN/Creat Ratio 13.3 RATIO (10-20); Calcium,Total 8.5 mg/dL (7.6-11.0); Carbon Dioxide 21.8 mmol/L (21.0-32.0); Chloride 100 mmol/L (98-108); Creatinine, Serum 0.94 mg/dL (0.70-1.20); EST Glomerular Filtration Rate 59 (>60); Estimated Creatinine Clearance 31.82 ml/min (50-250); Glucose 135 mg/dL (70-99); Potassium 3.8 mmol/L (3.3-5.1); Sodium Level 134 mmol/L (133-145)
[2025-03-23 06:32] LABS: Bedside Glucose 139 mg/dL (74-106)
[2025-03-23 06:45] LABS: Hemoglobin A1c 6.5 % (<=5.6)
--- NOTE | 2025-03-23 09:00 | PCM.PRE.AN2 ---
ASA Classification* ASA Classification ASA Classification: 2 Assessment & Plan Anesthesia* Anesthesia Assessment Anesthesia Assessment: Discussed sedation and/or anesthesia options, risks, benefits, and alternatives with patient/parents/legal guardian/POA. Questions invited. The patient/parents/legal guardian/POA seems to understand and agrees to proceed with anesthesia plan. Reviewed the physical assessment, medical history, allergy history and patient home medications list prior to surgery/procedure/anesthetic and documented any changes. Performed airway and anesthesia risk assessments. Anesthesia Type Anesthesia Type: General History Source History Obtained from:: Patient and Chart Anesthesia Focused Assessment* Temperature: 98.3 F Pulse Rate: 90 Blood Pressure: 150/83 Respiratory Rate: 16 Pulse Ox: 95 Oxygen Delivery Method: Nasal Cannula Oxygen Flow Rate (L/min): 2 Airway Assessment Mouth opens: >3 cm Mallampati Score: IV Teeth Condition: Dentures and Missing (Missing several molars on the lower jaw. Rest are tight.) Neck Range of motion (ROM): Full ROM Focused Labs Anesthesia Preop lab: CBC WBC 8.8 K/mm3 (4.4-11.0) 03/23/25 05:20 03/23/25 RBC 3.52 M/mm3 (4.2-5.4) L 03/23/25 05:20 03/23/25 Hgb 10.9 g/dL (12.0-15.0) L 03/23/25 05:20 03/23/25 Hct 31.7 % (37-47) L 03/23/25 05:20 03/23/25 Plt Count 203 K/mm3 (150-450) 03/23/25 05:20 03/23/25 CHEMISTRY Potassium 3.8 mmol/L (3.3-5.1) 03/23/25 05:20 03/23/25 Sodium 134 mmol/L (133-145) 03/23/25 05:20 03/23/25 BUN 12 mg/dL (4-19) 03/23/25 05:20 03/23/25 Creatinine 0.94 mg/dL (0.70-1.20) 03/23/25 05:20 03/23/25 Glucose 135 mg/dL (70-99) H 03/23/25 05:20 03/23/25 POC Glucose 139 mg/dL (74-106) H 03/23/25 06:12 03/23/25 TSH 1.62 uIU/mL (0.358-3.74) 09/07/20 13:39 09/07/20 COAG PT 13.7 SECONDS (11.7-14.9) 03/23/25 05:20 03/23/25 Pre-Assessment Diagnosis/Proposed Procedure Planned Operative Procedure(s): Right hip hemiarthroplasty. Anesthesia History Anesthesia History - international organizer: Anesthesia History - international organizer Hx Hospitalization Yes 12/15/20 19:40 Any Problems With Anesthesia No 03/22/25 19:51 Cholinesterase deficiency No 03/22/25 19:51 You/Your Family Experience No 03/22/25 19:51 fever (hyperthermia) with Relationship Recent Exposure to Contagious No 03/22/25 19:51 Disease Does patient have nerve No 03/22/25 19:51 stimulator Patient instructed to have No 03/22/25 19:51 device shut off --Does patient have Pacemaker No 03/23/25 08:46 or ICD? When Was Last Pacemaker Check QUESTION #4 FULL TEXT: You/Your Family Experience fever (hyperthermia) with Anesthesia Last Oral Intake Last Oral intake: Last Oral Intake NPO since 00:00 03/23/25 08:46 Meds taken in AM with sips of No 03/23/25 08:46 water? Meds patient instructed to take am of surgery PONV PONV - international organizer: PONV - international organizer Female HX of Motion Sickness HX of N/V After Surgery Non-Smoker Duration of Surgery greater than 60 minutes Number of Risk Factors PONV Score Height & Weight Height & Weight: Anesthesia: Height & Weight Height 5 ft 1 in 03/23/25 08:46 Weight: 48.489 kg 03/23/25 08:46 Body Mass Index (BMI) 20.2 03/23/25 08:46 Respiratory Assessment Respiratory Assessment - international organizer: Respiratory Tract Infection Hx - international organizer Hx Respiratory Tract Infection No 03/22/25 19:51 STOP Sleep Apnea STOP Sleep Apnea - international organizer: STOP Sleep Apnea - international organizer Hx Hypertension No 03/22/25 16:46 Hx Sleep Apnea No 03/22/25 16:46 CPAP No 03/22/25 16:46 BIPAP No 03/22/25 16:46 Do you snore loudly (louder No 03/22/25 16:46 than talking or can be heard Do you often feel tired/ No 03/22/25 16:46 fatigued/ sleepy during daytime? Has anyone observed you stop No 03/22/25 16:46 breathing during sleep? STOP Results Negative 03/22/25 16:46 QUESTION #5 FULL TEXT : Do you snore loudly (louder than talking or can be heard through closed doors)? Tobacco Use History Tobacco Use History - international organizer: Tobacco Use History - international organizer Tobacco Use Smoking Status Never smoker 03/22/25 16:46 Hx Tobacco Use No 03/22/25 16:46 Years Smoking Packs Smoked per Day Smoking Cessation Date was within the last 15 years Hx Smoking Cessation Date Hx Smoking Cessation Counseling Hematologic Medial History Hematologic Hx - international organizer: Hematologic Medical Hx - transmission repairer Hx of Blood Transfusion No 03/22/25 16:46 Hx of Transfusion in last 3 No 03/22/25 16:46 Months Date of Last Transfusion (if within last 3 months) Ever experience any problems No 03/22/25 16:46 with transfusion(s)? Specify any problems Hx of Preganancy in last 3 N/A 03/22/25 16:46 Months Nurse Filling Out Transfusion RKARPER 03/22/25 16:46 & Questions: Date: 03/22/25 03/22/25 16:46 Time: 16:48 03/22/25 16:46 Patient unable to answer at this time (ie. confused, unrespo /Reproduction History /Reproductive History - international organizer: /Reproductive Hx- international organizer Hx Now No 03/22/25 19:51 Gestational Age (in weeks): EDC: Hx Hx Para Hx Section SAB No 03/22/25 19:51 Active Medications Active Medications: Current Medications Generic Name Dose Route Start Last Admin Trade Name Freq PRN Reason Stop Dose Admin Acetaminophen 1,000 mg 03/22/25 22:00 03/23/25 05:50 Acetaminophen 500 Mg Tablet PO Not Given Q8 ANTHONY Albuterol Sulfate 2.5 mg 03/22/25 16:45 Albuterol 2.5 Mg/3 Ml Vial.Neb. INHALATION Q2H PRN PRN SOB &/OR WHEEZING Sodium Chloride 77.4 ml/ 0 ml 03/23/25 15:00 Ropivacaine 200 mg/ OPERA.SITE 03/23/25 15:01 Epinephrine HCl 0.6 mg/ INTRAOP ONE Ketorolac Tromethamine 30 mg/ Morphine Sulfate 5 mg Glucagon 1 mg 03/22/25 16:45 Glucagon 1 Mg/Ml Syringe IM X1 PRN Hypoglycemia Protocol Sodium Chloride 1,000 mls @ 50 mls/hr 03/22/25 16:45 03/22/25 17:10 IV 03/23/25 12:44 50 mls/hr .Q20H ANTHONY Administration Dextrose 250 mls @ 0 mls/hr 03/22/25 16:45 Dextrose 10%-Water IV .Q0M PRN HYPOGLYCEMIA Protocol As Directed Sodium Chloride 500 mls @ 15 mls/hr 03/22/25 16:54 IV PRN PRN Blood Transfusion Sodium Chloride 250 mls @ 15 mls/hr 03/22/25 16:54 IV .[id number] PRN Saline Flush Sodium Chloride 250 mls @ 15 mls/hr 03/22/25 16:54 IV .[id number] PRN Additional IVPB Infusion Cefazolin Sodium 2 gm/ Sodium 110 mls @ 150 mls/hr 03/23/25 15:00 Chloride IV 03/23/25 15:43 INTRAOP ONE Tranexamic Acid 1,000 mg/ 110 mls @ 660 mls/hr 03/23/25 15:00 Sodium Chloride IV 03/23/25 15:09 INTRAOP ONE Tranexamic Acid 1,000 mg/ 110 mls @ 660 mls/hr 03/23/25 15:00 Sodium Chloride IV 03/23/25 15:09 INTRAOP ONE Insulin Human Lispro 0 unit 03/23/25 07:00 03/23/25 06:23 Insulin Lispro 100 Unit/Ml Insuln.Pen SC Not Given TIDAC PENDING SALE TO [facility] Protocol Melatonin 10 mg 03/22/25 16:45 03/22/25 22:35 Melatonin 3 Mg Tablet PO 10 mg QHS PRN PRN Administration INSOMNIA Morphine Sulfate 2 - 4 mg 03/22/25 16:45 Morphine 2 Mg/Ml Syringe IV Q3H PRN PRN Pain Score 6-10 Morphine Sulfate 2 - 4 mg 03/22/25 17:02 03/22/25 22:35 Morphine 4 Mg/Ml Syringe IV 4 mg Q3H PRN PRN Administration Pain Score 6-10 Ondansetron HCl 4 mg 03/22/25 16:45 Ondansetron 4 Mg/2 Ml Vial IV Q8H PRN PRN NAUSEA/VOMITING Oxycodone HCl 5 mg 03/22/25 16:45 03/22/25 21:35 Oxycodone 5 Mg Tablet PO 5 mg Q4H PRN PRN Administration Pain Score 4-10 Senna/Docusate Sodium 2 tablet 03/22/25 22:00 03/23/25 08:49 Senna/Docusate Sodium 1 Tablet PO Not Given BID ANTHONY Sodium Chloride 10 - 40 ml 03/22/25 16:54 03/22/25 20:15 0.9% Saline Lock 10 Ml Syringe IV 10 ml UD PRN Administration SALINE FLUSH PFSH Home Medications ?Medication ?Instructions ?Recorded ?Last Taken ?Type melatonin 3 mg capsule 3 mg PO QHS PRN sleep 01/30/25 Unknown History bisacodyl 10 mg rectal suppository 10 mg [place] DAILY PRN constipation 03/22/25 Unknown History glucagon 1 mg solution for 1 mg IM Q20M PRN hypoglycemia 03/22/25 Unknown History injection (Glucagon Emergency Kit) magnesium hydroxide 400 mg/5 mL 30 ml PO DAILY PRN constipation 03/22/25 Unknown History oral suspension (Milk of Magnesia) metformin 1,000 mg tablet 1,000 mg PO BID 03/22/25 Unknown History mineral oil (Fleet Mineral Oil 118 ml [place] DAILY PRN constipation 03/22/25 Unknown History enema) Allergy/AdvReac Type Severity Reaction Status Date / Time pneumococcal vaccine Allergy Hives Verified 03/22/25 14:23 (Pneumococcal Vaccine) Social History Smoking Status: Never smoker Review of Systems (Anesthesia) ROS Narrative System reviewed and no additional complaints, except as documented.
[2025-03-23] MEDS: Lactated Ringers 1,000 ML 15 ML IV (09:23)
--- NOTE | 2025-03-23 10:46 | PCM.PN.BLA ---
Progress Note Patient seen and examined in the preoperative area. Confirmed history from yesterday. No acute events overnight.
--- NOTE | 2025-03-23 10:47 | PCM.PN.ORT ---
Subjective Subjective Patient seen and evaluated in the preoperative area. Confirms history. Complains of right hip pain. Was seen by my partner yesterday consented for surgery. Ready for surgery overnight Objective Data Objective Data Vital Signs: Vital Signs Temp Pulse Resp BP Pulse Ox O2 Del Method O2 Flow Rate 99.4 F H 91 16 150/83 H 95 Nasal Cannula 2 03/23/25 09:20 03/23/25 09:20 03/23/25 09:06 03/23/25 09:06 03/23/25 09:20 03/23/25 09:20 03/23/25 09:20 Oxygen Flow Rate (L/min) 2 Oxygen Delivery Method Nasal Cannula Weight: 106 lb 14.4 oz Body Mass Index (BMI) 20.2 Intake & Output: Intake and Output for Last 24 Hours 03/21/25 03/22/25 03/23/25 23:59 23:59 23:59 Output Total 475 / 475 Balance -475 / -475 Lab / Micro Data 03/23/25 05:20 03/23/25 05:20 Labs: Laboratory Results - last 24 hr 03/22/25 14:52: WBC 9.9, RBC 3.84 L, Hgb 11.9 L, Hct 34.5 L, MCV 89.8, MCH 31.0, MCHC 34.5, RDW Std Deviation 43.8, RDW Coeff of Cheryl 13.3, Plt Count 230, MPV 10.7, Immature Gran % (Auto) 0.600, Neut % (Auto) 63.9, Lymph % (Auto) 22.0, [place] % (Auto) 9.3, Eos % (Auto) 3.8, Baso % (Auto) 0.4, Absolute Neuts (auto) 6.4, Absolute Lymphs (auto) 2.18, Nucleated RBC % 0, Sodium 135, Potassium 4.4, Chloride 101, Carbon Dioxide 19.8 L, Anion Gap 14, BUN 16, Creatinine 1.07, Estim Creat Clear Calc 27.95 L, Est GFR (MDRD) Non-Af 50 L, BUN/Creatinine Ratio 14.7, Glucose 153 H, Calcium 9.3 03/22/25 21:31: POC Glucose 170 H 03/23/25 05:20: WBC 8.8, RBC 3.52 L, Hgb 10.9 L, Hct 31.7 L, MCV 90.1, MCH 31.0, MCHC 34.4, RDW Std Deviation 43.8, RDW Coeff of Cheryl 13.4, Plt Count 203, MPV 10.8, Immature Gran % (Auto) 0.500, Neut % (Auto) 68.2, Lymph % (Auto) 18.5 L, [place] % (Auto) 9.6, Eos % (Auto) 2.9, Baso % (Auto) 0.3, Absolute Neuts (auto) 6.0, Absolute Lymphs (auto) 1.63, Nucleated RBC % 0, PT 13.7, INR 1.0, Sodium 134, Potassium 3.8, Chloride 100, Carbon Dioxide 21.8, Anion Gap 12, BUN 12, Creatinine 0.94, Estim Creat Clear Calc 31.82 L, Est GFR (MDRD) Non-Af 59 L, BUN/Creatinine Ratio 13.3, Glucose 135 H, Hemoglobin A1c 6.5 H, Calcium 8.5, Blood Type A NEGATIVE, Antibody Screen NEGATIVE 03/23/25 06:12: POC Glucose 139 H Radiography Diagnostic Testing: Radiology Impression Chest X-Ray 03/22/25 15:05 IMPRESSION: No focal consolidations Reading Location: [facility] Hip/Pelvis X-Ray 03/22/25 15:05 IMPRESSION: Acute, displaced fracture of the right femoral neck with superior displacement of the femur. There is no femoral head dislocation. [id number] degenerative changes of the right hip. Mild associated soft tissue swelling. No radiographic foreign body. Reading Location: [facility] Rhythm Strip Rhythm Strip: Sinus Rhythm Rate: 90 Ectopy: None Physical Exam Narrative Right lower extremity: Skin clean, dry, and intact. Limb is shortened and externally rotated Motor is intact dorsiflexion, EHL and plantar flexion. Sensation is intact to light touch saphenous, niya,l superficial peroneal, deep peroneal and tibial distributions. Calves are soft and supple. Const alert and oriented x3 Assessment & Plan Assessment/Plan (1) Closed subcapital fracture of neck of right femur: QUALIFIERS: Encounter type: initial encounter Qualified Code(s): S72.011A - Unspecified intracapsular fracture of right femur, initial encounter for closed fracture PLAN: Patient was seen and consented for surgery yesterday. We did reaffirm patient wishes to move forward with surgery. I better in the preoperative area. Based on time constraints I am able to assist the patient in a more timely manner than my partner who is on-call. Patient is agreeable to this. Risks and benefits of the procedure were discussed the patient including but not limited to blood loss, DVTs, PEs, neurovascular medical infection, the risk of anesthesia, loss of life. Blood transfusions are possible, more fractures and preparing the bones surgically and postoperatively, leg length discrepancies and dislocations were all discussed. Patient demonstrates understanding wishes to proceed today. Antibiotics on-call to the operating room. Patient is currently NPO.
--- NOTE | 2025-03-23 11:30 | FEM_PTH ---
PATIENT: JAYLEN GODWIN LOC: MS3 U#:[id number] AGE/SX: 89/F ROOM: [facility] [place] RE03/22/[address]: Dr. Karan Herrera DO : 1935 BED: 1 DIS: 03/24/2025 SPEC #: [id number] RECD: 03/23/25 18:15 STATUS: ROSANA REQ #: [id number] TREY: 03/23/25 11:[address]: Ian Littlejohn DEPT: SURGICAL PATHOLOGY RECD BY: Tam Yanes ENTERED: 03/24/25 08:26 SP TYPE: FEM HEAD OTHR DR: DO Dr. Dillon Bro MD Dr. Paige Pierce, MD Dr. Rodney Miller, MD Tissues: A - Femoral region, NOS Procedures: Decalcification bone/plaque Surgery Specimen Level IV HEADER OPERATION: Hemiarthroplasty, hip PRE-OP DIAGNOSIS: Closed subcapital fracture of neck of right femur TISSUE SUBMITTED: A- Right femoral head MICROSCOPIC DIAGNOSIS A. Right femoral head, fracture, hemiarthroplasty: * Articular bone with reactive/degenerative changes, focal acute hemorrhage, and patchy trilineage hematopoiesis. MICROSCOPIC DESCRIPTION Slides are reviewed. GROSS DESCRIPTION A. Received in formalin in a container labeled with the patient's name, date of , and right femoral head is a 4.0 x 3.8 x 3.2 cm femoral head with minimal attached shaggy and hemorrhagic femoral neck. The cortical surface is moore, smooth, with a 1.5 x 0.9 cm area of tiny moore-white speckles. Sectioning reveals firm and focally hemorrhagic surfaces. The speckled area is unremarkable on cut surface. Received in the same container are multiple firm and hemorrhagic fragments of possible femoral neck measuring 3.5 x 1.5 x 1.5 cm in aggregate. Sectioning reveals hemorrhagic and firm surfaces. Dip Unit Operator sections are submitted in A1 following decalcification (including hemorrhagic margin and speckled area). [facility] 03-24-2025 CPT:00573,57233
[2025-03-23] MEDS: TXA 1000mg in NS100 100ml (IVPB at Incision) 660 MG IV (13:42)
[2025-03-23] MEDS: Cefazolin 2 GM in 0.9% Normal Saline (100mL Bag) 100 ML IV (13:51)
--- NOTE | 2025-03-23 14:25 | RAD_ITS ---
PROCEDURE: Intraoperative fluoroscopic services for right hip replacement. REASON FOR EXAM: JOSE TECHNIQUE: One (1) view of the right hip COMPARISON: Comparison is made with prior study dated March 22, 2025. FINDINGS: Intraoperative imaging was provided. 4.5 seconds of fluoroscopy. 0.45 mGy. RAD/Hip 1 view with Pelvis IMPRESSION: Intraoperative imaging provided for right hip replacement. There is good align ment. Reading Location: [facility]
[2025-03-23] MEDS: JPS (Morphine 10mg/ml) OPERA.SITE (14:52)
--- NOTE | 2025-03-23 14:59 | PCM.OPRPT ---
Operative Report (Standard) Operative Information Date of Procedure: 03/23/25 Pre-Operative Diagnosis: Right hip subcapital femoral neck fracture Post-Operative Diagnosis: Right hip subcapital femoral neck fracture Surgery/Procedure Performed: Right direct anterior hemiarthroplasty production finisher: Yes Pipe Fitter Maintenance: Darcie Meier Tasks completed by electrician station assistant: Other (See body of operative report) Additional delinquent tax collection assistant?: No Type of Anesthesia: General RN Documented Start/Stop Times: Operation Date: 03/23/25 11:30 Case Time Into Pre-Op 03/23/25 09:07 Anesthesia Start 03/23/25 13:29 Into Room 03/23/25 13:29 Procedure Start 03/23/25 14:04 Procedure End 03/23/25 15:50 Anesthesia End 03/23/25 15:56 Out of Room 03/23/25 15:56 Into Recovery 03/23/25 16:22 Out of Recovery 03/23/25 17:20 Procedure Start Time: 14:04 Procedure Stop Time: 15:50 Select all DRAINS/GRAFTS/IMPLANTS that apply: Prosthetic device Prosthetic device details: Diego hemiarthroplasty femur: Insignia to high offset femoral head: Beeson chromium Unitrax 42, +4 sleeve Special Medications: Ancef Estimated Blood Loss: 250 mL Fluids Replaced: 600 mL crystalloid Specimen collected: Yes Description of specimen(s) removed: Bony cuts/fracture Description of surgery: Procedure: On the date of procedure the patient's R hip was marked in the preoperative area. Patient was then taken back to the operating room where anesthesia assumed control of the C-spine and airway and administered anesthetic. Patient was transferred to the operating table and placed in the supine position. The hips were placed the break of the bed and a bump was placed in the sacrum. The R lower extremity was then prepped out in a sterile fashion using chlorhexidine while the surgeon scrubbed. Upon reentering the room the R lower extremity was draped in the standard orthopedic fashion and the incision was marked. A timeout was called and everyone agreed upon the side, the site, the procedure be performed, antibody given, and patient's identity. At this time incision was made through skin, subcutaneous tissue, and fat down to fascia. The fascia was then incised and the TFL was retracted laterally. A retractor was placed on the lateral border of the femoral neck. Attention was directed to the inferior portion of the approach and all crossing vessels were identified and appropriately coagulated. A retractor was then placed on the medial portion of the femoral neck. The anterior capsule was then cleared of all soft tissue and then H shaped capsulotomy was made. The retractors were then placed inside the capsule. The femoral neck was identified and a cleanup cut was made. At this time a power corkscrew was used to remove the femoral head. The femoral head was measures and a 42 mm UNipolar component was selected. Soft tissue releases on the medial and lateral femoral neck were appropriately done, the leg was externally rotated and lateralized. A Zapien retractor was placed medially and proximally to the greater trochanter this allowed appropriate visualization and exposure of the femoral canal. Rongeour was then used to remove excess lateral bone. A canal finder and entry broach were used to open the proximal canal. Once we verified we were down the femoral canal we subsequently broached up to a size 2 femur. The appropriate neck was placed in the previously selected head was trialed with a -4mm neck. Traction was pulled and the hip was reduced with internal rotation. Once it was appropriately reduced and stability was checked. There was minimal shuck, equal leg lengths and appropriate stability with hyperextension and external rotation as well as with 90? flexion and internal rotation. The trial components were then dislocated the proximal femur was again exposed and the components were removed from the wound. The final components were verified and opened. The wound was copiously irrigated out with normal saline. The acetabulum was checked for any residual debris. The final components were placed and impacted. Traction and internal rotation were again used to reduce the hip. After adequate reduction the hip remained stable with appropriate leg lengths. The wound was then copiously irrigated with normal saline once more, and hemostasis was obtained. Closure was then done using #1 Vicryl runner to close the fascia. A 2-0 Vicryl runner was used to close the subcutaneous skin. A 3-0 Monocryl and Steri-Strips were used for final skin closure. A Silverlon dressing was placed. Patient was awakened by anesthesia and transferred to the [facility]. Patient was then transferred to the PACU for recovery. Postoperative plan: Patient will get 24 hours postop antibiotics. Patient will get in-house physical therapy and will be weight-bear as tolerated. Patient will follow up in office in 2 weeks for a wound check and x-rays. Recommend 81 mg aspirin twice daily upon discharge. Therapies currently initiated. During the course of the procedure the physician long distance operator (PE) played a vital role. Their intimate knowledge of my steps in the procedure aided in safe and expedient completion of the procedure. The PE played a vital rolls in positioning particularly in obtaining the appropriate positioning of the sacral bump. The PE was also vital in the retraction of soft tissues during the exposure and especially the femoral work as this is a vital part of the procedure to prevent complications and fractures. The PE was also vital and protecting soft tissues during times of bony cuts and reaming. He also played a vital role in closure with my direct supervision. The PE was also important during reduction and dislocation of the joint and trials intraoperatively. Surgical Findings: Stable hip with equal leg lengths. Subcapital femoral neck fracture Complications Complications: No Admit VTE Documentation VTE Present on Admission: No VTE Mechan Device Prophylaxis: SCD's and Thigh High MIRELA Hose VTE Pharm Prophylaxis ordered?: Yes
[2025-03-23] MEDS: TXA 1000mg in NS100 100ml (IVPB at Closure) 660 MG IV (15:05)
--- NOTE | 2025-03-23 16:11 | PCM.POST.ANE ---
Anesthesia: Postop Eval I Current Vital Signs Temperature: 99.3 F Pulse Rate: 107 Blood Pressure: 159/94 Respiratory Rate: 14 Pulse Ox: 98 Oxygen Delivery Method: Simple Mask Assessment Airway patent: Yes Spontaneous unlabored respirations: Yes Mental status: Awake nausea: No Vomiting: No Anesthesia Complication: No Fluid Hydration Crystalloid volume administer (ml): 800 Total IV fluid infused: 800 Progress Note Anesthesia document: Postop Eval 1 completed: Yes
--- NOTE | 2025-03-23 16:12 | CHAPLAIN ---
Type of Pastoral Visit ___ Initial Visit ___ Follow-up Visit ___ On-call Visit ___ General Patient Visit ___ Spiritual Assessment ___ Family Conference ___ Bereavement ___ Rapid Response ___ Code Blue ___ Other (describe below) Pastoral Care Referral From ___ Patient ___ Family ___ Nurse ___ Physician ___ Molecular Pathologist ___ Carpenter Repairer ___ Other (describe below) Sacrament/Intervention ___ Active listening ___ Anointing ___ Synagogue ___ Bereavement ___ Communion ___ Sofia exploration ___ ___ Life review ___ Prayer ___ Reconciliation ___ Sacrament of Sick ___ Supportive presence ___ Wedding ___ Other (describe below) Pastoral Comments patient was not in the room; left a calling card
--- NOTE | 2025-03-23 16:30 | RAD_ITS ---
EXAM: XR Right Hip With Pelvis When Performed, 1 View CLINICAL INDICATION: POST OP TECHNIQUE: Frontal view of the right hip with pelvis when performed. COMPARISON: No relevant prior studies available. FINDINGS: BONES/JOINTS: Total hip replacement. Intact hardware. No acute fracture. No dislocation. SOFT TISSUES: Soft tissue emphysema and swelling. RAD/Hip Min 2 Views (Portable) IMPRESSION: Status post total hip replacement in anatomic position. Reading Location: [id number]
--- NOTE | 2025-03-23 17:13 | SUR.PHASEI ---
DR. LUCERO AWAREOF PATIENT HEART RATE 100-101. HE IS OK FOR PATIENT TO GO UPSTAIRS.
[2025-03-23 17:22] LABS: Bedside Glucose 227 mg/dL (74-106)
[2025-03-23] MEDS: Insulin Lispro 100 UNIT/ML INSULN.PEN SC (17:51)
[2025-03-23] MEDS: Aspirin 81 MG TAB.CHEW PO (18:05)
--- NOTE | 2025-03-23 18:05 | CASEMGMT ---
Social Work -Chart reviewed and noted patient is from [facility], and has been a resident there since 02.10.2022, intermediate level of care. -Noted that patient to surgery today for repair of hip fracture -Per ED SW note/initial assessment upon admission, which included input from patient/family/POA[facility], patient's wish is to return to [facility] at time of discharge. -Message through [facility] inquiring whether patient will require a precert to return as noted [facility] Anticipate PT/OT needs after surgery. Plan: Return to [facility] nursing facility when ready. SW to follow and assist as indicated, including updating patient/family/POAHC as indicated. -GLORIA Mancera
[2025-03-23 18:13] LABS: Bedside Glucose 256 mg/dL (74-106)
--- NOTE | 2025-03-23 18:30 | POSTOPAN2_ITS ---
Anesthesia Postop Eval I Sum Postop Eval Completion status Anesthesia document: Postop Eval 1 completed: Yes Anesthesia Postop Eval I Summary Anesthesia Postop Eval I Summary: Anesthesia Postop Eval I: Assessment Summary Airway patent Yes 03/23/25 16:12 CORRECTIONAL [email or web address] Spontaneous unlabored Yes 03/23/25 16:12 CORRECTIONAL [email or web address] respirations Mental status Awake 03/23/25 16:12 CORRECTIONAL [email or web address] nausea No 03/23/25 16:12 CORRECTIONAL [email or web address].[email or web address] Vomiting No 03/23/25 16:12 CORRECTIONAL [email or web address].[email or web address] Anesthesia Postop Eval I: Fluid Summary Crystalloid volume administer 800 03/23/25 16:12 CORRECTIONAL [email or web address].[email or web address] (ml) Colloids volume administered ( ml) Blood Product volume administered (ml) Total IV fluid infused 800 03/23/25 16:12 CORRECTIONAL [email or web address] Anesthesia Postop Eval I: Summary Notes Anesthesia Complication No 03/23/25 16:12 CORRECTIONAL [email or web address].HBARR Anesthesia Complication Comment: Post-operative progress note Anesthesia: Postop Eval II Evaluation Mental status: Awake and Calm Pain Level: 2 nausea: No Vomiting: No Complications Anesthesia Complication: No
--- NOTE | 2025-03-23 18:30 | PCM.POSTANE2 ---
Anesthesia Postop Eval I Sum Postop Eval Completion status Anesthesia document: Postop Eval 1 completed: Yes Anesthesia Postop Eval I Summary Anesthesia Postop Eval I Summary: Anesthesia Postop Eval I: Assessment Summary Airway patent Yes 03/23/25 16:12 SYNTHETIC DEPARTMENT [email or web address] Spontaneous unlabored Yes 03/23/25 16:12 SYNTHETIC DEPARTMENT SUPERVISOR.[email or web address] respirations Mental status Awake 03/23/25 16:12 SYNTHETIC DEPARTMENT SUPERVISOR.[email or web address] nausea No 03/23/25 16:12 SYNTHETIC DEPARTMENT SUPERVISOR.HBARR Vomiting No 03/23/25 16:12 SYNTHETIC DEPARTMENT SUPERVISOR.[email or web address] Anesthesia Postop Eval I: Fluid Summary Crystalloid volume administer 800 03/23/25 16:12 SYNTHETIC DEPARTMENT SUPERVISOR.HBARR (ml) Colloids volume administered ( ml) Blood Product volume administered (ml) Total IV fluid infused 800 03/23/25 16:12 SYNTHETIC DEPARTMENT SUPERVISOR.HBARR Anesthesia Postop Eval I: Summary Notes Anesthesia Complication No 03/23/25 16:12 SYNTHETIC DEPARTMENT SUPERVISOR.HBARR Anesthesia Complication Comment: Post-operative progress note Anesthesia: Postop Eval II Evaluation Mental status: Awake and Calm Pain Level: 2 nausea: No Vomiting: No Complications Anesthesia Complication: No
[2025-03-23] MEDS: Senna/Docusate Sodium 1 Tablet 2 TABLET PO (21:56)
[2025-03-23] MEDS: Cefazolin 1 GM/50 ML BAG IV (21:56)
[2025-03-23] MEDS: Acetaminophen 500 MG Tablet 1000 MG PO (21:56)
[2025-03-24] VITALS (7 sets, daily range): BP systolic 133–178; BP diastolic 57–86; PULSE 71–95; RESP 16–18; TEMP 36.4–36.6; O2SAT 96–100
[2025-03-24] MEDS: Acetaminophen 500 MG Tablet 1000 MG PO ×2 (05:34→13:03)
[2025-03-24] MEDS: Cefazolin 1 GM/50 ML BAG IV (05:34)
[2025-03-24 05:57] LABS: Bedside Glucose 117 mg/dL (74-106)
[2025-03-24 07:05] LABS: Absolute Lymphocyte Count 1.62 X10^3/uL (0.83-4.51); Absolute Neutrophil Count 8.8 X10^3/uL (2.0-7.7); Basophil# 0.03 X10^3/uL; Basophil% 0.3 % (0-1); Eosinophil# 0.12 X10^3/uL; Hematocrit 30.4 % (37-47); Hemoglobin 10.5 g/dL (12.0-15.0); Lymphocyte # 1.62 X10^3/ul (0.83-4.51); Mean Corp Hgb Conc 34.5 g/dL (32-36); Mean Corpuscular Hgb 30.7 pg (27.0-32.0); Mean Corpuscular Volume 88.9 fL (81-99); Mean Platelet Vol. 11.3 fl (6.2-12.0); Monocyte# 0.97 X10^3/uL; Monocyte% 8.4 % (0-10); NRBC Flagged by Analyzer 0 % (0-5); Neutrophil # 8.79 X10^3/uL (2.7-7.7); Neutrophil % 75.8 % (47-70); Platelet Count 212 K/mm3 (150-450); RBC Distribution Width CV 13.1 % (11.6-14.6); RBC Distribution Width SD 42.7 fl (35.1-43.9); Red Blood Count 3.42 M/mm3 (4.2-5.4); White Blood Count 11.6 K/mm3 (4.4-11.0)
[2025-03-24 07:29] LABS: Anion Gap 15 (5-15); BUN 13 mg/dL (4-19); BUN/Creat Ratio 13.9 RATIO (10-20); Calcium,Total 8.3 mg/dL (7.6-11.0); Carbon Dioxide 18.4 mmol/L (21.0-32.0); Chloride 102 mmol/L (98-108); Creatinine, Serum 0.97 mg/dL (0.70-1.20); EST Glomerular Filtration Rate 57 (>60); Estimated Creatinine Clearance 30.83 ml/min (50-250); Glucose 126 mg/dL (70-99); Potassium 3.7 mmol/L (3.3-5.1); Sodium Level 135 mmol/L (133-145)
[2025-03-24] MEDS: 0.9% Saline Lock 10 ML Syringe IV (08:03)
[2025-03-24] MEDS: Aspirin 81 MG TAB.CHEW PO (08:04)
[2025-03-24] MEDS: Senna/Docusate Sodium 1 Tablet 2 TABLET PO (08:06)
[2025-03-24] MEDS: Famotidine 20 MG Tablet PO (08:06)
[2025-03-24] MEDS: Ensure Surgery 237 ML LIQUID PO (08:06)
--- NOTE | 2025-03-24 08:12 | PN.ORTHO_ITS ---
Subjective Subjective Patient appears comfortable in bed this morning. Patient did not work with physical therapy yet to this point. Patient resides at [facility] facility. Patient states that she is feeling really good and her pain is well- controlled. Patient states that she did have a bowel movement this morning. Patient denies any fever, chills, signs of infection. Patient denies any new numbness or tingling. Patient denies any nausea, vomiting, dizziness. Patient denies any shortness of breath, chest pain, calf pain. Patient denies any adverse events overnight. Objective Data Objective Data Vital Signs: Vital Signs Temp Pulse Resp BP Pulse Ox O2 Del Method O2 Flow Rate 97.6 F L 71 18 137/57 H 100 Nasal Cannula 3 03/24/25 08:09 03/24/25 08:09 03/24/25 08:09 03/24/25 08:09 03/24/25 08:09 03/24/25 08:09 03/24/25 08:09 FiO2 98 03/23/25 22:09 Oxygen Flow Rate (L/min) 3 Oxygen Delivery Method Nasal Cannula Weight: 48.489 kg Body Mass Index (BMI) 20.2 Intake & Output: Intake and Output for Last 24 Hours 03/22/25 03/23/25 03/24/25 23:59 23:59 23:59 Intake Total 2250 / 2500 500 / 500 Output Total 2050 / 2350 650 / 650 Balance 200 / 150 -150 / -150 Lab / Micro Data 03/24/25 05:43 03/24/25 05:43 Labs: Laboratory Results - last 24 hr 03/23/25 17:03: POC Glucose 227 H 03/23/25 17:45: POC Glucose 256 H 03/24/25 05:33: POC Glucose 117 H 03/24/25 05:43: WBC 11.6 H, RBC 3.42 L, Hgb 10.5 L, Hct 30.4 L, MCV 88.9, MCH 30.7, MCHC 34.5, RDW Std Deviation 42.7, RDW Coeff of Cheryl 13.1, Plt Count 212, MPV 11.3, Immature Gran % (Auto) 0.500, Neut % (Auto) 75.8 H, Lymph % (Auto) 14.0 L, [place] % (Auto) 8.4, Eos % (Auto) 1.0, Baso % (Auto) 0.3, Absolute Neuts (auto) 8.8 H, Absolute Lymphs (auto) 1.62, Nucleated RBC % 0, Sodium 135, Potassium 3.7, Chloride 102, Carbon Dioxide 18.4 L, Anion Gap 15, BUN 13, Creatinine 0.97, Estim Creat Clear Calc 30.83 L, Est GFR (MDRD) Non-Af 57 L, BUN/Creatinine Ratio 13.9, Glucose 126 H, Calcium 8.3 Radiography Diagnostic Testing: Radiology Impression Hip/Pelvis X-Ray 03/23/25 14:25 IMPRESSION: Intraoperative imaging provided for right hip replacement. There is good alignment. Reading Location: [id number] Hip X-Ray 03/23/25 16:30 IMPRESSION: Status post total hip replacement in anatomic position. Reading Location: [id number] Rhythm Strip Rhythm Strip: Sinus Rhythm Rate: 90 Ectopy: None Physical Exam Narrative MIRELA hose in place bilaterally SCDs in place bilaterally Dressing is clean dry and intact Right hip is soft and supple. Dorsiflexion and plantarflexion are performed but pain or restriction Sensation intact to light touch Neurovascularly intact overall Negative Homans bilaterally Const alert, oriented x3 and no apparent distress Assessment & Plan Assessment/Plan (1) Closed subcapital fracture of neck of right femur: QUALIFIERS: Encounter type: initial encounter Qualified Code(s): S72.011A - Unspecified intracapsular fracture of right femur, initial encounter for closed fracture PLAN: Status post right direct anterior hemiarthroplasty day 1 1 DVT prophylaxis: Patient will be on aspirin 81 mg twice daily for 4 weeks postoperatively. Patient will be wearing MIRELA hose bilaterally for 2 weeks postoperatively removing at night and with showering. Patient was educated to do 5 minutes of movement per every hour. 2. Pain medications: Patient will be taking Tylenol 1000 mg every 8 hours taking no more than 3000 mg in 24 hours, patient will also have oxycodone to take as needed for pain medication. OARRS report was reviewed today. Risk of abuse potential was discussed with patient. Patient was educated not to use while driving motor vehicle or operating equipment. Patient voiced understanding. 3. Constipation: Patient stated that she has had a bowel movement to this time. Patient was educated can take senna as needed for postoperative constipation. 4. Reactive leukocytosis: White blood cell count currently 11.6. Vital signs are stable and patient is afebrile. Patient was given Decadron intraoperatively. 5. Physical therapy: Patient will be weightbearing as tolerated with walker with physical therapy. Patient states that she does do physical therapy every day at her nursing facility. 6. H&H: 10.5/30.4. Currently vital signs are stable and patient is afebrile. Hemoglobin is currently above 10 so do not need to implement anemia protocol. 7. Incentive spirometry: Patient was encouraged to use incentive spirometer every hour that she is awake for the first week to exercise lungs and decrease risk of postoperative infection. Patient voiced understanding. 8. Dressings: Patient was educated she can get waterproof dressing wet on postoperative day 1. Patient was educated she can remove dressing on postoperative day 5. Patient was educated if incision is clean dry and intact she is able to leave open to air. 9. Patient will have a follow-up appointment with Peggy Ulrich in 2 weeks. 10. Medicine is currently primary care team and will continue to manage. Appreciate all recommendations from medicine standpoint. 11. Patient is okay for discharge from orthopedic services if pain maintains adequately controlled, has worked with and is cleared by physical therapy, and is okay per medicine doctors instructions. 12. Patient states that she does plan to return to [facility]. Patient will be weightbearing as tolerated following anterior hip precautions. Patient will follow-up with our office in 2 weeks for reevaluation and suture removal. Patient was encouraged to call our office with any questions, concerns, new problems.
--- NOTE | 2025-03-24 09:59 | CASEMGMT ---
Discharge Planning Pt can return to [facility] w/o precert. SW updated. Misty Olmstead DC Planning Asst.
--- NOTE | 2025-03-24 10:12 | PCM.PN.HOSP ---
Reason for Visit Reason for Visit: Diagnoses Unspecified intracapsular fracture of right femur, initial encounter for closed fracture (03/22/25) Subjective Subjective Patient was seen and examined today, she underwent a right direct anterior hemiarthroplasty today, she appears stable after surgery and appears in no distress. The date of this entry is 03/23/2025 Objective Data Objective Data Vital Signs: Vital Signs Temp Pulse Resp BP Pulse Ox O2 Del Method O2 Flow Rate 97.6 F L 71 18 137/57 H 98 Nasal Cannula 2 03/24/25 08:09 03/24/25 08:09 03/24/25 08:09 03/24/25 08:09 03/24/25 08:23 03/24/25 08:16 03/24/25 08:16 FiO2 98 03/23/25 22:09 Oxygen Flow Rate (L/min) 2 Oxygen Delivery Method Nasal Cannula Weight: 48.489 kg Body Mass Index (BMI) 20.2 Intake & Output: Intake and Output for Last 24 Hours 03/22/25 03/23/25 03/24/25 23:59 23:59 23:59 Intake Total 2250 / 2500 500 / 500 Output Total 2050 / 2350 650 / 650 Balance 200 / 150 -150 / -150 Lab / Micro Data 03/24/25 05:43 03/24/25 05:43 Labs: Laboratory Results - last 24 hr 03/23/25 17:03: POC Glucose 227 H 03/23/25 17:45: POC Glucose 256 H 03/24/25 05:33: POC Glucose 117 H 03/24/25 05:43: WBC 11.6 H, RBC 3.42 L, Hgb 10.5 L, Hct 30.4 L, MCV 88.9, MCH 30.7, MCHC 34.5, RDW Std Deviation 42.7, RDW Coeff of Cheryl 13.1, Plt Count 212, MPV 11.3, Immature Gran % (Auto) 0.500, Neut % (Auto) 75.8 H, Lymph % (Auto) 14.0 L, [place] % (Auto) 8.4, Eos % (Auto) 1.0, Baso % (Auto) 0.3, Absolute Neuts (auto) 8.8 H, Absolute Lymphs (auto) 1.62, Nucleated RBC % 0, Sodium 135, Potassium 3.7, Chloride 102, Carbon Dioxide 18.4 L, Anion Gap 15, BUN 13, Creatinine 0.97, Estim Creat Clear Calc 30.83 L, Est GFR (MDRD) Non-Af 57 L, BUN/Creatinine Ratio 13.9, Glucose 126 H, Calcium 8.3 Radiography Diagnostic Testing: Radiology Impression Hip/Pelvis X-Ray 03/23/25 14:25 IMPRESSION: Intraoperative imaging provided for right hip replacement. There is good alignment. Reading Location: [id number] Hip X-Ray 03/23/25 16:30 IMPRESSION: Status post total hip replacement in anatomic position. Reading Location: [id number] Rhythm Strip Rhythm Strip: Sinus Rhythm Rate: 90 Ectopy: None Physical Exam Const alert and no apparent distress Constitutional Narrative: Patient appears younger than her stated age, she has some mild confusion General Appearance: cooperative, well kempt and well developed Orientation / Consciousness: awake, oriented to person and oriented to place HEENT normocephalic, head/scalp atraumatic and moist oral mucous membranes Eyes PERRL, EOMs intact bilaterally and conjunctivae normal Neck supple, no JVD, thyroid normal and no carotid bruits General: trachea midline Resp normal respiratory effort, no retractions, no use of accessory muscles and clear to auscultation bilaterally Auscultation: Negative for rales, rhonchi or wheezes Cardio regular rate, regular rhythm, S1 normal heart sound, S2 normal heart sound, no murmurs, no rub and no gallops GI normal to inspection, nondistended, normoactive bowel sounds, soft to palpation, non-tender and non-distended Extremity no clubbing, cyanosis or edema Skin no rashes or lesions noted Neuro oriented x3, CN's II-XII intact bilaterally, moves all extremities, no focal motor deficits and no sensory deficits noted Sensorium / Orientation: awake and alert Speech: speech normal Psych Psych Narrative: Patient exhibits some mild confusion, she answers simple questions appropriately Assessment & Plan Assessment/Plan (1) Closed subcapital fracture of neck of right femur: QUALIFIERS: Encounter type: initial encounter Qualified Code(s): S72.011A - Unspecified intracapsular fracture of right femur, initial encounter for closed fracture PLAN: Plan 1. Subcapital fracture of the right hip-postop day 0-PT and OT will see the patient, orthopedic surgery is participating in her care, she will return to her extended care facility on discharge #2 type 2 diabetes-patient will remain on fingerstick glucose checks and sliding scale insulin #3 Alzheimer's dementia-complicates care, management, recovery, and prognosis #4 history of essential hypertension-patient is not currently on any medications, blood pressure will be monitored Total clinical time spent by myself addressing patient's medical issues, reviewing all of her data, and collaborating with the patient's care team: 35 minutes Charges/Coding Visit Charges Inpatient E&M: 24830 Subs Hosp L2 (Date of service-03/23/2025)
--- NOTE | 2025-03-24 10:27 | PCM.TXEXTCAR ---
Diet Diet Order/Speech Therapy: 03/24/25 06:14 Diet: Regular - General No added sugar Routine Orders/Code Status Code Status: DNRCC DC O2, CPAP, BIPAP needs Home O2 Discharge instructions: No Wound(s) RIGHT HIP: Wound Type: Remove dressing on postop day 5 Dressing Change: Remove dressing on postop day 5, can get waterproof dressing wet Therapies Weight Bearing: Weight bearing as tolerated Extremity Affected:: Right Lower Physical Therapy: Eval and Treat Occupational Therapy: Eval and Treat Problem/Diagnosis (1) Closed subcapital fracture of neck of right femur: Status: Acute Code(s): S72.011A - Unspecified intracapsular fracture of right femur, initial encounter for closed fracture Plan 1. Subcapital fracture of the right hip-postop day 0-PT and OT will see the patient, orthopedic surgery is participating in her care, she will return to her extended care facility on discharge #2 type 2 diabetes-patient will remain on fingerstick glucose checks and sliding scale insulin #3 Alzheimer's dementia-complicates care, management, recovery, and prognosis #4 history of essential hypertension-patient is not currently on any medications, blood pressure will be monitored Total clinical time spent by myself addressing patient's medical issues, reviewing all of her data, and collaborating with the patient's care team: 35 minutes Allergies/Procedures Done in Hospital Allergies pneumococcal vaccine (Pneumococcal Vaccine) Allergy (Verified 03/22/25 14:23) Hives Procedures: - (Hemiarthroplasty right hip 03/23/2025) Type of Care/Length of Stay Estimated LOS: More Than 30 Days Type of Care Needed: Intermediate Rehab Potential: Good Prognosis: Good Additional Orders/Day of Discharge H&P will serve as current which was dated: 03/22/25 Day of Discharge: 03/24/25 Dietary and Speech Recommendations Dietitian Recommendations/Changes: As medically able, rec TERESA to CHO Controlled w/ 4 oz glucerna shake tid w/ meals Will interview pt at time of follow up re: diet/wt hx/SMBG, etc and make additional rec as indicated. Discharge Plan Admission Admit Date/Time: 03/22/25 16:22 Primary Reason for Your Visit: Right hip subcapital fracture Attending Provider: Karan Herrera Primary Care Provider: Dillon Bolton Consulting Providers: Lito Ballesteros; Madeleine Cazares Instructions Additional Instructions / Restrictions: MIRELA craft bilaterally x 2 weeks postoperatively removing at night and with showering Discharge Orders/Prescriptions Prescriptions: New acetaminophen 500 mg Tablet 1,000 mg PO Q8 Qty: 0 0RF aspirin 81 mg Tablet,Chewable 81 mg PO BIDCM Qty: 0 0RF Rx Instructions: Use for 4 weeks then discontinue oxycodone 5 mg Tablet 5 mg PO Q4H PRN PRN (Reason: Pain Score 4-10) 2 Days Qty: 6 0RF pantoprazole [Protonix] 20 mg tablet,delayed release (DR/EC) 20 mg PO DAILY Qty: 30 0RF Rx Instructions: Use for 30 days then discontinue Continued melatonin 3 mg capsule 3 mg PO QHS PRN (Reason: sleep) metformin 1,000 mg tablet 1,000 mg PO BID bisacodyl 10 mg suppository 10 mg MI DAILY PRN (Reason: constipation) mineral oil [Fleet Mineral Oil] Enema 118 ml MI DAILY PRN (Reason: constipation) Rx Instructions: discard any unused portion Glucagon Emergency Kit (human) 1 mg recon soln 1 mg IM Q20M PRN (Reason: hypoglycemia) Rx Instructions: until target blood sugar attained magnesium hydroxide [Milk of Magnesia] 400 mg/5 mL suspension 30 ml PO DAILY PRN (Reason: constipation) Referrals / Follow Up: Dillon Bolton MD [Primary Care Provider] - Ian Littlejohn MD [Med Staff - Active Staff] - See Referral Note (Follow-up in 2 weeks at his office, call for appointment) Disposition Disposition (needs filled in before D/C Order can be placed): NonSkilled NH/Intermed Care (1) Closed subcapital fracture of neck of right femur Qualifiers: Encounter type: initial encounter Qualified Code(s): S72.011A - Unspecified intracapsular fracture of right femur, initial encounter for closed fracture
--- NOTE | 2025-03-24 10:47 | DS.PCM_ITS ---
Providers Date of Admission: 03/22/25 Date of Discharge: 03/24/25 Primary Care Physician: Dr. Dillon Bolton MD Consultations 03/22/25 16:45 Consult: Orthopedics Routine Consulting Provider: Lito Ballesteros Reason for Consult: R hip fracture EMERGENT Consult: No MD Notified: Yes Date Notified: 03/22/25 Time Notified: 16:25 Method of Notification: ED Physician Initiated Reason For Visit: RIGHT HIP FX Diagnosis Discharge Diagnosis (1) Closed subcapital fracture of neck of right femur: Status: Acute Code(s): S72.011A - Unspecified intracapsular fracture of right femur, initial encounter for closed fracture Qualifiers: Encounter type: initial encounter Qualified Code(s): S72.011A - Unspecified intracapsular fracture of right femur, initial encounter for closed fracture Plan 1. Subcapital fracture of the right hip-postop day 0-PT and OT will see the patient, orthopedic surgery is participating in her care, she will return to her extended care facility on discharge #2 type 2 diabetes-patient will remain on fingerstick glucose checks and sliding scale insulin #3 Alzheimer's dementia-complicates care, management, recovery, and prognosis #4 history of essential hypertension-patient is not currently on any medications, blood pressure will be monitored Total clinical time spent by myself addressing patient's medical issues, reviewing all of her data, and collaborating with the patient's care team: 35 minutes Medications at Discharge Home Medications melatonin 3 mg capsule 3 mg PO QHS PRN sleep 01/30/25 bisacodyl 10 mg rectal suppository 10 mg SC DAILY PRN constipation 03/22/25 glucagon 1 mg solution for injection (Glucagon Emergency Kit) 1 mg IM Q20M PRN hypoglycemia 03/22/25 magnesium hydroxide 400 mg/5 mL oral suspension (Milk of Magnesia) 30 ml PO DAILY PRN constipation 03/22/25 metformin 1,000 mg tablet 1,000 mg PO BID 03/22/25 mineral oil (Fleet Mineral Oil enema) 118 ml SC DAILY PRN constipation 03/22/25 acetaminophen 500 mg tablet 1,000 mg (2 x 500 mg) PO Q8 #0 tabs 03/24/25 aspirin 81 mg chewable tablet 81 mg PO BIDCM #0 tabs 03/24/25 oxycodone 5 mg tablet 5 mg PO Q4H PRN PRN Pain Score 4-10 2 days #6 tabs 03/24/25 pantoprazole 20 mg tablet,delayed release (Protonix) 20 mg PO DAILY #30 tabs 03/24/25 Hospital Course Operations - (Right hip direct anterior hemiarthroplasty) Procedures None Summary of Care Provided Minutes Spent on Discharge: 31 Hospital Course: This 89-year-old white female was seen in the emergency room after a fall onto her right hip. Patient complained of acute pain and inability to move or bear weight on her right hip. Patient confirms that she did not strike her head and she denied any other injuries. Patient is currently resides permanently in a intermediate [place] [facility]. Workup in the emergency room included x-rays which showed an acute displaced fracture of the right femoral neck with superior displacement of the femur. Patient was admitted to [place] [address] and seen in consultation by orthopedic surgery, she underwent a right hip hemiarthroplasty and had no complications. She was seen postop by PT and OT. On 03/24/2025, patient was seen and examined:alert and no apparent distress Constitutional Narrative: Patient appears younger than her stated age, she has some mild confusion General Appearance: cooperative, well kempt and well developed Orientation / Consciousness: awake, oriented to person and oriented to place HEENT normocephalic, head/scalp atraumatic and moist oral mucous membranes Eyes PERRL, EOMs intact bilaterally and conjunctivae normal Neck supple, no JVD, thyroid normal and no carotid bruits General: trachea midline Resp normal respiratory effort, no retractions, no use of accessory muscles and clear to auscultation bilaterally Auscultation: Negative for rales, rhonchi or wheezes Cardio regular rate, regular rhythm, S1 normal heart sound, S2 normal heart sound, no murmurs, no rub and no gallops GI normal to inspection, nondistended, normoactive bowel sounds, soft to palpation, non-tender and non-distended Extremity no clubbing, cyanosis or edema Skin no rashes or lesions noted Neuro oriented x3, CN's II-XII intact bilaterally, moves all extremities, no focal motor deficits and no sensory deficits noted Sensorium / Orientation: awake and alert Speech: speech normal Psych Psych Narrative: Patient exhibits some mild confusion, she answers simple questions appropriately On 03/24/2025, patient was stable for discharge to her intermediate nursing facility for further care. Weight / BMI Weight Weight: 48.489 kg Body Mass Index (BMI) 20.2 ABG / Lab / Microbiology Data 03/24/25 05:43 03/24/25 05:43 Laboratory: Laboratory Results - last 24 hr 03/23/25 17:03: POC Glucose 227 H 03/23/25 17:45: POC Glucose 256 H 03/24/25 05:33: POC Glucose 117 H 03/24/25 05:43: WBC 11.6 H, RBC 3.42 L, Hgb 10.5 L, Hct 30.4 L, MCV 88.9, MCH 30.7, MCHC 34.5, RDW Std Deviation 42.7, RDW Coeff of Cheryl 13.1, Plt Count 212, MPV 11.3, Immature Gran % (Auto) 0.500, Neut % (Auto) 75.8 H, Lymph % (Auto) 14.0 L, Toombs % (Auto) 8.4, Eos % (Auto) 1.0, Baso % (Auto) 0.3, Absolute Neuts (auto) 8.8 H, Absolute Lymphs (auto) 1.62, Nucleated RBC % 0, Sodium 135, Potassium 3.7, Chloride 102, Carbon Dioxide 18.4 L, Anion Gap 15, BUN 13, Creatinine 0.97, Estim Creat Clear Calc 30.83 L, Est GFR (MDRD) Non-Af 57 L, BUN/Creatinine Ratio 13.9, Glucose 126 H, Calcium 8.3 Radiography Diagnostic Testing: Radiology Impression Hip/Pelvis X-Ray 03/23/25 14:25 IMPRESSION: Intraoperative imaging provided for right hip replacement. There is good alignment. Reading Location: [id number] Hip X-Ray 03/23/25 16:30 IMPRESSION: Status post total hip replacement in anatomic position. Reading Location: [facility] D/C Instructions DC O2, CPAP, BIPAP Needs Home O2 Discharge instructions: No Meaningful Use Info Meaningful Use Meaningful Use Diagnoses (Choose all that apply): None applicable Ischemic Stroke Statin Dosing Therapy Reference: STATIN DOSE THERAPY REFERENCE: * Patients > 75 years receive moderate or high dose statin therapy. * Patients 75 years or YOUNGER should receive HIGH intensity statin dose unless contraindicated. You will be required to document reason for non-treatment if statin daily dose does not meet guidelines. HIGH DOSE STATIN THERAPY DAILY Atorvastatin > than or = to 40 mg Rosuvastatin > than or = to 20 mg Amlodipine + Atorvastatin > than or = to 2.5/40 mg Ezetimibe + Simvastatin 10/80 mg Simvastatin 80mg Discharge Plan Admission Admit Date/Time: 03/22/25 16:22 Primary Reason for Your Visit: Right hip subcapital fracture Attending Provider: Karan Herrera Primary Care Provider: Dillon Bolton Consulting Providers: Lito Ballesteros; Madeleine Cazares Instructions Additional Instructions / Restrictions: MIRELA craft bilaterally x 2 weeks postoperatively removing at night and with showering Discharge Orders/Prescriptions Prescriptions: New acetaminophen 500 mg Tablet 1,000 mg PO Q8 Qty: 0 0RF aspirin 81 mg Tablet,Chewable 81 mg PO BIDCM Qty: 0 0RF Rx Instructions: Use for 4 weeks then discontinue oxycodone 5 mg Tablet 5 mg PO Q4H PRN PRN (Reason: Pain Score 4-10) 2 Days Qty: 6 0RF pantoprazole [Protonix] 20 mg tablet,delayed release (DR/EC) 20 mg PO DAILY Qty: 30 0RF Rx Instructions: Use for 30 days then discontinue Continued melatonin 3 mg capsule 3 mg PO QHS PRN (Reason: sleep) metformin 1,000 mg tablet 1,000 mg PO BID bisacodyl 10 mg suppository 10 mg SC DAILY PRN (Reason: constipation) mineral oil [Fleet Mineral Oil] Enema 118 ml SC DAILY PRN (Reason: constipation) Rx Instructions: discard any unused portion Glucagon Emergency Kit (human) 1 mg recon soln 1 mg IM Q20M PRN (Reason: hypoglycemia) Rx Instructions: until target blood sugar attained magnesium hydroxide [Milk of Magnesia] 400 mg/5 mL suspension 30 ml PO DAILY PRN (Reason: constipation) Referrals / Follow Up: Dillon Bolton MD [Primary Care Provider] - Ian Littlejohn MD [Med Staff - Active Staff] - See Referral Note (Follow-up in 2 weeks at his office, call for appointment) Disposition Disposition (needs filled in before D/C Order can be placed): NonSkilled NH/Intermed Care Charges/Coding Visit Charges Inpatient E&M: 04045 Disch Hosp >30min
--- NOTE | 2025-03-24 11:26 | PHA.DC.MR.R ---
Pharmacy CT Med Reconciliation Pharmacy Service has performed discharge medication reconciliation for this patient. The patient's discharge medication list was reviewed for discrepancies and discrepancies were resolved. Medications at Discharge Home Medications melatonin 3 mg capsule 3 mg PO QHS PRN sleep 01/30/25 bisacodyl 10 mg rectal suppository 10 mg CO DAILY PRN constipation 03/22/25 glucagon 1 mg solution for injection (Glucagon Emergency Kit) 1 mg IM Q20M PRN hypoglycemia 03/22/25 magnesium hydroxide 400 mg/5 mL oral suspension (Milk of Magnesia) 30 ml PO DAILY PRN constipation 03/22/25 metformin 1,000 mg tablet 1,000 mg PO BID 03/22/25 mineral oil (Fleet Mineral Oil enema) 118 ml CO DAILY PRN constipation 03/22/25 acetaminophen 500 mg tablet 1,000 mg (2 x 500 mg) PO Q8 #0 tabs 03/24/25 aspirin 81 mg chewable tablet 81 mg PO BIDCM #0 tabs 03/24/25 oxycodone 5 mg tablet 5 mg PO Q4H PRN PRN Pain Score 4-10 2 days #6 tabs 03/24/25 pantoprazole 20 mg tablet,delayed release (Protonix) 20 mg PO DAILY #30 tabs 03/24/25
--- NOTE | 2025-03-24 11:30 | CASEMGMT ---
Social Work- Physician updated and pt is ready for discharge today.?SW met with pt and they are agreeable to discharge plan as stated above.? DCA and bedside nurse notified of discharge. All final notifications and arrangements to be completed by DCA. Disposition:[facility], intermediate level of care NAGI Johnson
[2025-03-24 11:54] LABS: Bedside Glucose 249 mg/dL (74-106)
--- NOTE | 2025-03-24 12:15 | CASEMGMT ---
Discharge Planning Discharge orders and transport time sent to [facility]. Physicians will transport pt by cot at 3p. Nursing, SW, pt, and her friend/HC POA (Bob) updated. Misty Olmstead DC Planning Asst.
[2025-03-24] MEDS: Insulin Lispro 100 UNIT/ML INSULN.PEN SC (13:03)
--- NOTE | 2025-03-24 13:55 | CHAPLAIN ---
Type of Pastoral Visit _x__ Initial Visit ___ Follow-up Visit ___ On-call Visit ___ General Patient Visit ___ Spiritual Assessment ___ Family Conference ___ Bereavement ___ Rapid Response ___ Code Blue ___ Other (describe below) Pastoral Care Referral From _x__ Patient ___ Family ___ Nurse ___ Physician ___ Rectifying Operator ___ Bullet Casting Operator ___ Other (describe below) Sacrament/Intervention _x__ Active listening ___ Anointing ___ Buddhism ___ Bereavement ___ Communion ___ Sofia exploration ___ ___ Life review _x__ Prayer ___ Reconciliation ___ Sacrament of Sick ___ Supportive presence ___ Wedding ___ Other (describe below) Pastoral Comments patient is pleasant and welcoming; pt says that she is getting great care, is planning to return to SNF today, and that she looks forward to returning because it is a good place with kind people and my friends; son is with the patient; no other needs identified
== END 2025-03-24 16:12 | disposition intermediate care facility (04) | DRG 522 ==
LOC: ED 15:46 → MS3 15:54
PROVIDERS: Anesthesiology; Specialist; Admitting Provider Internal Medicine; Emergency Provider Emergency Medicine; PCP Family Medicine; Referring Provider Internal Medicine; Visit Provider Internal Medicine
PROC: 0SRR01Z Replacement of Right Hip Joint, Femoral Surface with Metal Synthetic Substitute, Open Approach (ICD-10-PCS; CPT 27125; principal; 2025-03-23 11:10)
DX: S72.011A Unspecified intracapsular fracture of right femur, initial encounter for closed fracture (principal); E11.9 Type 2 diabetes mellitus without complications; Z66 Do not resuscitate; G30.9 Alzheimer's disease, unspecified; W10.1XXA Fall (on)(from) sidewalk curb, initial encounter; F02.80 Dementia in other diseases classified elsewhere, unspecified severity, without behavioral disturbance, psychotic disturbance, mood disturbance, and anxiety; Z86.79 Personal history of other diseases of the circulatory system; Z79.84 Long term (current) use of oral hypoglycemic drugs
CPT/HCPCS: 36415; 71045; 73501; 73502; 76000; 80048; 82962; 83036; 85025; 85610; 86850; 86900; 86901; 88304; 88305; 88311; 93005; 94668; 97162; 97166; 99283; C1776; A4216; J2405

== ENCOUNTER 2025-03-29 17:25 | Emergency (ER) | payer MEDICARE, MEDICAID, SELFPAY ==
[2025-03-29 17:27] VITALS: BP 170/87; PULSE 88; RESP 16; TEMP 36.5; O2SAT 97; BMI 20.7
--- NOTE | 2025-03-29 18:16 | EDS_ITS ---
HPI History of Present Illness Chief Complaint: Abd Pain Narrative Narrative: Chief complaint and HPI: Left lower quadrant abdominal pain. 89-year-old female with past medical history of DM and recent right hip hemiarthroplasty with Dr. Littlejohn on 03/23 for fracture presents for evaluation from [facility] for left lower quadrant abdominal pain. Patient states that she had some left lower quadrant abdominal pain this afternoon that has since resolved. She states the staff asked her if she was having any pain and she said yes in her abdomen. They then brought her to the emergency department. She states that she did not want to come to the emergency department and is no longer having pain. She states she does have some mild pain in the right hip but nothing severe. She denies any fever, chills, shortness of breath, chest pain, nausea, vomiting, diarrhea, constipation, dysuria. Review of systems: See HPI Medications: As listed on the chart Allergies: As listed on the chart PFSH: Per chart Vital signs: As listed on the chart. Reviewed. Physical exam: Gen: A&O x3, NAD Head: Normocephalic, atraumatic Eyes: No sclera icterus, conjunctiva clear ENT: Moist mucous membranes Neck: Trachea midline, No JVD CV: RRR, no murmurs, no peripheral edema Resp: Lungs CTA BL, no w/r/c GI: Abd soft, non-distended, non-tender, no r/r/g : No CVA tenderness Musc: Full ROM of all extremities but slightly limited in the right lower extremity given recent surgery, incision healing well with sutures-there is some mild erythema and warmth to the skin around the sutures, no purulence or crepitus, no significant tenderness, DP/PT pulses +2 bilaterally Skin: Warm, dry Neuro: Alert, oriented, grossly intact, sensation intact Psych: Cooperative, appropriate mood and affect PFS PFS Home Medications ?Medication ?Instructions ?Recorded ?Last Taken ?Type melatonin 3 mg capsule 3 mg PO QHS PRN sleep Unknown History bisacodyl 10 mg rectal suppository 10 mg OK DAILY PRN constipation 03/22/25 Unknown History glucagon 1 mg solution for 1 mg IM Q20M PRN hypoglycem ia 03/22/25 Unknown History injection (Glucagon Emergency Kit) magnesium hydroxide 400 mg/5 mL 30 ml PO DAILY PRN con stipation 03/22/25 Unknown History oral suspension (Milk of Magnesia) metformin 1,000 mg tablet 1,000 mg PO BID 03/22/25 Unk nown History mineral oil (Fleet Mineral Oil 118 ml OK DAILY PRN con stipation 03/22/25 Unknown History enema) acetaminophen 500 mg tablet 1,000 mg (2 x 500 mg) PO Q 8 #0 tabs 03/24/25 Unknown Rx aspirin 81 mg chewable tablet 81 mg PO BIDCM #0 tabs 0 03/24/25 Unknown Rx oxycodone 5 mg tablet 5 mg PO Q4H PRN PRN Pain Sco re 03/24/25 Unknown Rx 4-10 2 days #6 tabs pantoprazole 20 mg tablet,delayed 20 mg PO DAILY #30 t abs 03/24/25 Unknown Rx release (Protonix) cephalexin 500 mg capsule 500 mg PO Q12 #14 CAPSULES 0 03/29/25 Unknown Rx Allergy/AdvReac Type Severity Reaction Status Date / Time pneumococcal vaccine Allergy Hives Verified 03/29/25 17:33 (Pneumococcal Vaccine) Surgical History (Updated 03/29/25 @ 17:32 by Susannah Quinn) Status post right hip replacement Social History Smoking Status: Never smoker EXAM Physical Exam Const Vital Signs: 03/29/25 17:27 Temperature 97.7 F L Temperature Source Oral Pulse Rate 88 Respiratory Rate 16 Blood Pressure 170/87 H Blood Pressure Mean 114 Pulse Ox 97 Oxygen Delivery Method Room Air MDM MDM MDM Narrative Medical decision making narrative: 89-year-old female with past medical history of DM and recent right hip hemiarthroplasty with Dr. Littlejohn on 03/23 for fracture presents for evaluation from [facility] for left lower quadrant abdominal pain. Patient states that she had some left lower quadrant abdominal pain this afternoon that has since resolved. She denies any symptoms other than some mild right hip pain that is not unsuspected given her recent surgery. She states she did not want to come to the emergency department and does not want a workup. Her abdominal exam is benign. Given this, I did contact [facility] and spoke with the nurse taking care of the patient. She states that the patient did endorse abdominal pain but that if it has resolved they are okay with foregoing treatment as patient does not want this and exam is unremarkable. They state she has been complaining of right hip pain. States that they feel like the redness around the incision is slightly worse. She does have some mild erythema and warmth around the sutures, differential is early cellulitis versus normal wound healing. Given that they reported this is worsening, will place on Keflex for 1 week. Patient and [facility] nurse was educated that she needs to follow-up with orthopedics and PCP. They confirmed understanding. I do not think any laboratory workup or imaging is needed as patient has no real complaints. Patient and nursing staff in agreement. Patient will be discharged to [facility]. Impression: 1 left lower quadrant abdominal pain, resolved. 2. Early cellulitis surgical incision versus normal wound healing Discharge Plan Triage Chief Complaint: Abd Pain ED Provider: Satnam Ramirez Dx/Rx/DC Orders Clinical Impression: Abdominal pain Instructions: ED Abdominal Pain Unkn Cause Fem Prescriptions: New cephalexin 500 mg capsule 500 mg PO Q12 Qty: 14 0RF No Action melatonin 3 mg capsule 3 mg PO QHS PRN (Reason: sleep) metformin 1,000 mg tablet 1,000 mg PO BID bisacodyl 10 mg suppository 10 mg OK DAILY PRN (Reason: constipation) mineral oil [Fleet Mineral Oil] Enema 118 ml OK DAILY PRN (Reason: constipation) Rx Instructions: discard any unused portion Glucagon Emergency Kit (human) 1 mg recon soln 1 mg IM Q20M PRN (Reason: hypoglycemia) Rx Instructions: until target blood sugar attained magnesium hydroxide [Milk of Magnesia] 400 mg/5 mL suspension 30 ml PO DAILY PRN (Reason: constipation) acetaminophen 500 mg Tablet 1,000 mg PO Q8 Qty: 0 0RF aspirin 81 mg Tablet,Chewable 81 mg PO BIDCM Qty: 0 0RF Rx Instructions: Use for 4 weeks then discontinue oxycodone 5 mg Tablet 5 mg PO Q4H PRN PRN (Reason: Pain Score 4-10) 2 Days Qty: 6 0RF pantoprazole [Protonix] 20 mg tablet,delayed release (DR/EC) 20 mg PO DAILY Qty: 30 0RF Rx Instructions: Use for 30 days then discontinue Primary Care Provider: Dillon Bolton Referrals: Dillon Bolton MD [Primary Care Provider] - 3-5 Days Activity Restrictions/Additional Instructions: Return back to the ED if symptoms return or change. Follow-up with primary care physician and orthopedic surgeon. Will place on Keflex for possible early cellulitis of hip incision. Print Language: [place] Disposition Disposition: Home, Self Care
[2025-03-29 18:29] VITALS: BP 166/83; PULSE 86; RESP 16; TEMP 36.6; O2SAT 99
== END 2025-03-29 19:13 | disposition home or self-care (01) ==
PROVIDERS: Emergency Provider Surgery; PCP Family Medicine; Visit Provider Surgery
DX: R10.32 Left lower quadrant pain (principal); E11.9 Type 2 diabetes mellitus without complications; L53.9 Erythematous condition, unspecified; Z79.84 Long term (current) use of oral hypoglycemic drugs; Z79.82 Long term (current) use of aspirin; Z96.641 Presence of right artificial hip joint
CPT/HCPCS: 99284